=== PATIENT | male | born 1940 | race Caucasian/White ===

== ENCOUNTER 2016-08-15 19:22 | Emergency (ER) | payer BC ==
[~2016-08-15] VITALS: Ht 167.6 cm; Wt 65.0 kg
[~2016-08-15 19:22] MED LIST: Acetaminophen PO; FLORANEX PO; LORA1TAB PO; OMEP10CA4 PO; Vancomycin Hcl PO
[2016-08-15 19:46] VITALS: Ht 167.6 cm; Wt 65.0 kg
[2016-08-16] MEDS ORDERED: SOD CHLORIDE 0.9% 1,000 ML IV STA (01:44)
[2016-08-16 02:36] LABS: POTASSIUM 3.4 mmol/L (3.5-5.1)
[2016-08-16 02:39] LABS: ALBUMIN/GLOBULIN RATIO 1.37; BASOPHILS % 0.3 % (0.0-2.0); BILIRUBIN,INDIRECT 1.4 mg/dl (0-1.1); BILIRUBIN,TOTAL 1.4 mg/dl (0.2-1.3); CREATININE 0.79 mg/dl (0.61-1.24); EOSINOPHILS % 0.6 % (0.0-7.0); HEMATOCRIT 43.2 % (42.0-52.0); HEMOGLOBIN 14.7 g/dl (14.0-18.0); LYMPHOCYTES # 1.5 10^3/ul (0.8-2.9); LYMPHOCYTES % 21.3 % (15.0-51.0); MEAN CORPUSCULAR HGB CONC 34.1 g/dl (32.0-37.0); MEAN CORPUSCULAR VOLUME 90.8 fl (82.0-101.0); MEAN PLATELET VOLUME 7.4 fl (7.4-10.4); MONOCYTE # 0.5 10^3/ul (0.3-0.9); MONOCYTES % 6.7 % (0.0-11.0); NEUTROPHIL # 5.1 10^3/ul (1.6-7.5); NEUTROPHILS % 71.1 % (39.0-77.0); PLATELET COUNT 138 10^3/UL (140-440); RED BLOOD COUNT 4.75 10^6/ul (4.70-6.10); RED CELL DISTRIBUTION WIDTH 14.1 % (11.5-14.5); TOTAL PROTEIN 6.9 g/dl (6.1-8.1); UNCORRECTED WBC 7.1 10^3/ul (4.8-10.8); WHITE BLOOD COUNT 7.1 10^3/ul (4.8-10.8)
[2016-08-16 02:40] LABS: CALCIUM 8.9 mg/dl (8.4-10.2)
[2016-08-16 02:44] LABS: CONDITION 1
--- NOTE | 2016-08-16 02:54 | RADRPT ---
PROCEDURE: CT Abdomen and Pelvis without contrast. CLINICAL INDICATION: No bowel movement times 4 days TECHNIQUE: CT scan of the abdomen and pelvis without contrast was performed on a multidetector hig h-resolution CT scanner. The patient was scanned without intravenous contrast. No oral contrast was administered. Coronal and sagittal reformatted images were obtained from the axial source images. Im ages were reviewed on a high-resolution PACS workstation. The total exam CTDI equals 5.73 mGy and t he total exam DLP equals 312.16 mGy-cm. One or more of the following dose reduction techniques were used: - Automated exposure control. - Adjustment of the mA and/or kV according to patient size. - Use of iterative reconstruction technique. COMPARISON: 03/15/2015 FINDINGS: Lungs: Mild dependent atelectasis is seen in the posterior lower lungs. Linear atelectasis/fibrosis is seen at the lung bases. Chronic appearing fibrocalcific changes are again apparent in the right lower lung lobe which not appear to be significantly changed compared to the previous study. Oliva ry artery calcification is seen. Liver: There are rounded fluid density structures in the liver likely cysts again seen the largest 2 .8 cm in the anterior segment of the right lobe. Gallbladder: Cholelithiasis again seen. Spleen: No abnormality seen. Stomach: The stomach is not fully distended. No gross abnormality seen. Pancreas: No abnormality seen. Adrenals: No abnormality seen. Kidneys: There is a 3 mm nonobstructing calculus in the mid right kidney appearing since the previo us study. There is a 2 mm nonobstructing calcification in the mid left kidney appearing since the p revious study. There is a rounded fluid density structure arising from the mid left kidney measurin g 6.5 cm likely a cyst again seen. Abdominal aorta: No aneurysm seen. Atherosclerotic calcification is seen. Calcification in splenic , bilateral renal and iliac arteries. Lymph nodes: Appearing since the previous study there is lower left periaortic retroperitoneal/uppe r left iliac adenopathy with conglomerate ulysses mass measuring approximately 4.3 x 2.7 cm suspiciou s for malignancy/metastasis with smaller additional ulysses metastases seen in the left iliac and bila teral perirectal regions bilaterally the largest apparent oval mass on the right measuring 5.1 x 3.1 cm and the largest on the left 4 x 2.8 cm. Small bowel: No dilated small bowel loops are seen. Colon: No definite abnormality seen. Appendix: Not seen. Bladder: No abnormality seen Pelvic organs: Mild enlargement of prostate with impression on posterior inferior bladder appearing since previous study. Apparent seminal vesicles appear larger than on previous study. Ascites: None seen. Osseous structures: Lumbar spondylosis. Degenerative changes at sacroiliac joints and hips. IMPRESSION: Study limited without intravenous or oral contrast. Appearing since the previous study there is low er left periaortic retroperitoneal/upper left iliac adenopathy with conglomerate ulysses mass measurin g approximately 4.3 x 2.7 cm suspicious for malignancy/metastasis with smaller additional ulysses met astases seen in the left iliac and bilateral perirectal regions bilaterally the largest apparent ova l mass on the right measuring 5.1 x 3.1 cm and the largest on the left 4 x 2.8 cm. Mild enlargement of prostate with impression on posterior inferior bladder appearing since previous study. Apparent seminal vesicles appear larger than on previous study. Metastatic prostate carcinoma is a considerat ion. Cholelithiasis. A call report was made to <<Referring Physicians Name>> on <<DATETIME>>. RPTAT: HJES .Srinath Davenport MD, MD Date Time Electronically viewed and signed by .Srinath Davenport MD, MD on 08/16/2016 02:54 .S/
[2016-08-16 03:32] LABS: ADD UMIC YES; URINE BILIRUBIN (Dip) NEGATIVE (NEGATIVE); URINE BLOOD (Dip) 3+ (NEGATIVE); URINE GLUCOSE (Dip) NEGATIVE (NEGATIVE); URINE KETONES (Dip) 15 (NEGATIVE); URINE LEUKOCYTE ESTERASE (Dip) TRACE (NEGATIVE); URINE NITRITE (Dip) NEGATIVE (NEGATIVE); URINE TOTAL PROTEIN (Dip) 2+ (NEGATIVE); URINE UROBILINOGEN (Dip) 0.2 E.U./dL (0.1-1.0)
[2016-08-16 03:48] LABS: URINE COLOR RED (YELLOW)
[2016-08-16 03:57] LABS: URINE RBCS >200 /HPF (0)
[2016-08-16 03:58] LABS: BACTERIA,URINE FEW; SQUAMOUS EPITHELIAL CELL,UR FEW
[2016-08-16] MEDS ORDERED: DOCU-144 PO (05:09)
[2016-08-16] MEDS ORDERED: MAGN296S40 PO (05:09)
[2016-08-16] MEDS ORDERED: POLY17PO6 PO (05:09)
[2016-08-16] MEDS ORDERED: LEVO750T25 PO (05:38)
--- NOTE | 2016-08-16 05:47 | ERD ---
ER Documentation Chief Complaint Date/Time DATE: 08/16/16 TIME: 05:40 Chief Complaint no bowel movement for 5 days, blood clots urine, hx- prostate ca, brain ca HPI This is a 75-year-old male with history of prostate cancer comes emergency room for 5 days of constipation. He takes tramadol at home for pain which controls his pain well. Denies any increasing abdominal pain. Also states that he has had some blood clots in his urine for the past couple of days. States he has excellent PCP and urology follow-up and is undergoing treatment for his prostate cancer. Denies any lightheadedness, dizziness, chest pain, shortness of breath, fevers or chills. Denies dysuria. ROS All systems reviewed and are negative except as per history of present illness. Medications Home Meds Active Scripts Levofloxacin* (Levaquin*) 750 Mg Tablet, 750 MG PO DAILY for 5 Days, TAB Prov:MARLYCÉSAR 08/16/16 Docusate Sodium* (Colace*) 100 Mg Capsule, 100 MG PO TID, #30 CAP Prov:MARLYCÉSAR 08/16/16 Magnesium Citrate* (Magnesium Citrate*) 296 Ml Solution, 296 ML PO ONCE, #1 BOTTLE Prov:CÉSAR LUKE 08/16/16 Polyethylene Glycol* (Miralax*) 17 Gm Powd.pack, 17 GM PO DAILY, #7 Prov:CÉSAR LUKE 08/16/16 [Vancomycin Hcl] 50 MG/ML SOLN No Conflict Check, 250 MG PO Q6 for 18 Days, POSYG Prov:KEKE ARDON 07/11/15 Lactobacillus Acidoph/Bulgaricus* (Floranex*) 1 Tab Chew, 1 TAB PO BID for 30 Days, TAB Prov:KEKE ARDON 07/11/15 [Acetaminophen] 325 MG TAB No Conflict Check, 650 MG PO Q4H Y for pain/fever for 30 Days, TAB Prov:KEKE ARDON 07/11/15 Reported Medications Omeprazole* (Omeprazole*) 10 Mg Capsule.dr, 10 MG PO DAILY, #30 CAP 07/08/15 Lorazepam* (Lorazepam*) 1 Mg Tablet, 1 MG PO Q8 Y for ANXIETY, TAB 03/14/15 Allergies Allergies: Coded Allergies: hydrocodone (Unverified Allergy, Severe, 07/08/15) palpatations No Known Allergies (Verified Allergy, Mild, 07/07/15) PMhx/Soc History of Surgery: No Anesthesia Reaction: No Hx Neurological Disorder: No Hx Respiratory Disorders: No Hx Cardiac Disorders: No Hx Psychiatric Problems: No Hx Miscellaneous Medical Probl: Yes (altered mental status, metabolic encephalopathy, prostate CA, brain CA) Hx Alcohol Use: No Hx Substance Use: No Hx Tobacco Use: No Smoking Status: Never smoker Physical Exam Vitals Vital Signs Date Time Temp Pulse Resp B/P Pulse Ox O2 Delivery O2 Flow Rate FiO2 08/16/16 03:00 56 10 140/69 99 Room Air 08/16/16 02:00 61 16 133/72 99 Room Air 08/15/16 19:46 98.9 75 20 153/68 97 Physical Exam Const: [] Head: Atraumatic Eyes: Normal Conjunctiva ENT: Normal External Ears, Nose and Mouth. Neck: Full range of motion..~ No meningismus. Resp: Clear to auscultation bilaterally Cardio: Regular rate and rhythm, no murmurs Abd: Soft, non tender, non distended. Normal bowel sounds Skin: No petechiae or rashes Back: No midline or flank tenderness Ext: No cyanosis, or edema Neur: Awake and alert Psych: Normal Mood and Affect Result Diagram: 08/16/1615708/16/168 Results 24 hrs Laboratory Tests Test 08/16/16 01:58 08/16/16 03:02 Alanine Aminotransferase (ALT/SGPT) 16IU/L Albumin 4.0g/dl Albumin/Globulin Ratio 1.37 Alkaline Phosphatase 115IU/L Anion Gap 15 Aspartate Amino Transf (AST/SGOT) 30IU/L Basophils # 0.010^3/ul Basophils % 0.3% Blood Morphology Comment Blood Urea Nitrogen 15mg/dl Calcium Level 8.9mg/dl Carbon Dioxide Level 28mmol/L Chloride Level 92mmol/L Creatinine 0.79mg/dl Direct Bilirubin 0.00mg/dl Eosinophils # 0.010^3/ul Eosinophils % 0.6% Globulin 2.90g/dl Glucose Level 91mg/dl Hematocrit 43.2% Hemoglobin 14.7g/dl Indirect Bilirubin 1.4mg/dl Lymphocytes # 1.510^3/ul Lymphocytes % 21.3% Mean Corpuscular Hemoglobin 31.0pg Mean Corpuscular Hemoglobin Concent 34.1g/dl Mean Corpuscular Volume 90.8fl Mean Platelet Volume 7.4fl Monocytes # 0.510^3/ul Monocytes % 6.7% Neutrophils # 5.110^3/ul Neutrophils % 71.1% Nucleated Red Blood Cells # 0.010^3/ul Nucleated Red Blood Cells % 0.0/100WBC Platelet Count 97955^3/UL Potassium Level 3.4mmol/L Red Blood Count 4.7510^6/ul Red Cell Distribution Width 14.1% Sodium Level 132mmol/L Total Bilirubin 1.4mg/dl Total Protein 6.9g/dl White Blood Count 7.110^3/ul Urine Bacteria FEW Urine Bilirubin NEGATIVE Urine Clarity BLOODY Urine Color RED Urine Glucose NEGATIVE% Urine Hemoglobin 3+ Urine Ketones 15 Urine Leukocyte Esterase TRACE Urine Microscopic RBC >200/HPF Urine Microscopic WBC 0-2/HPF Urine Nitrite NEGATIVE Urine Specific [place] 1.015 Urine Squamous Epithelial Cells FEW Urine Total Protein 2+ Urine Urobilinogen 0.2 E.U./dL Urine pH 8.0 Current Medications Medications (Trade) Dose Ordered Sig/Beata Route PRN Reason Start Time Stop Time Status Last Admin Dose Admin Sodium Chloride (NS) 1,000 ml @ 1,000 mls/hr Q1H STAT IV 08/16/16 01:44 08/16/16 02:43 DC 08/16/16 01:59 Procedures/MDM Constipation and possible cystitis and patient with metastatic pancreatic cancer. No evidence of obstruction. Patient is able to take p.o. well and can hydrate himself at home. Has not tried laxatives yet for the constipation. Possible cystitis as this is the most common cause of hematuria. She with no significant fever chills or evidence of even early sepsis. Mild hyponatremia with history of chronic hyponatremia. Patient himself has excellent follow-up and has his own urologist. Going to discharge him with Levaquin for the possible cystitis. See discharge with primary care follow-up in the next 2 days as well as instructions to see his urologist within the next week for cystoscopy. I printed all of his laboratories and imaging so that he can take to his urologist and his primary care doctor. Giving him magnesium citrate, MiraLAX, Colace for bowel regimen instructed to return to the hospital if after the next few days these did not resolve his constipation. CT abdomen pelvis interpretation: Metastatic prostate cancer, constipation, no evidence of obstruction, no free air, gallstones without evidence of acute cholecystitis, no fractures Departure Diagnosis: Primary Impression: Constipation Additional Impressions: Hematuria Cystitis Thrombocytopenia Condition: Stable Patient Instructions: Hematuria Additional Instructions: Llame al doctor MAANA y yun zari LASHONDA PARA DENTRO DE 1-2 SOUZA. Tambien consigue zari lashonda con patiño UROLOGO entre zari semana. Dgale a la secretaria que nosotros le instruimos hacer esta lashonda.Avise o llame si patiño condicin se empeora antes de la lashonda. Regresa aqui si peor o no mejor. CÉSAR LUKE DO Aug 16, 2016 05:47
[2016-08-16 05:51] VITALS: BP 134/97; PULSE 63; RESP 20
== END 2016-08-16 05:51 | disposition home or self-care (01) ==
LOC: E/R 19:22
DX: K59.00 Constipation, unspecified (principal); R40.2252 Coma scale, best verbal response, oriented, at arrival to emergency department; N30.91 Cystitis, unspecified with hematuria; D69.6 Thrombocytopenia, unspecified; R40.2362 Coma scale, best motor response, obeys commands, at arrival to emergency department; R40.2142 Coma scale, eyes open, spontaneous, at arrival to emergency department; Z85.46 Personal history of malignant neoplasm of prostate; Z85.841 Personal history of malignant neoplasm of brain
CPT/HCPCS: 36415; 74176; 80053; 81001; 85025; 99285; J7030; 81003

== ENCOUNTER 2016-08-31 11:34 | Observation (INO) | payer BC ==
[2016-08-31] VITALS (7 sets, daily range): BP systolic 92–142; BP diastolic 53–64; PULSE 67; RESP 14–20; TEMP 99.5; Ht 182.9 cm; Wt 63.6 kg
[~2016-08-31] VITALS: Ht 182.9 cm; Wt 63.6 kg
[~2016-08-31 11:34] MED LIST changes: +DOCU-144 PO; +LEVO750T25 PO; +MAGN296S40 PO; +POLY17PO6 PO
[2016-08-31] MEDS ORDERED: SOD CHLORIDE 0.9% 500 ML IV STA ×2 (12:14→13:38)
[2016-08-31 12:42] LABS: ADD SCAN DIFF NO
[2016-08-31] MEDS ORDERED: ALPR0.5T6 PO (12:49)
[2016-08-31] MEDS ORDERED: PANT40TA3 PO (12:49)
[2016-08-31] MEDS ORDERED: LEVO500T10 PO (12:50)
[2016-08-31] MEDS ORDERED: DEXA4TAB PO (12:50)
[2016-08-31 12:52] LABS: POTASSIUM 3.4 mmol/L (3.5-5.1)
[2016-08-31] MEDS ORDERED: MORP10SO4 PO (12:52)
[2016-08-31 12:55] LABS: CREATININE 0.85 mg/dl (0.61-1.24)
[2016-08-31 12:58] LABS: ABNORMAL IP MESSAGE 1; BASOPHILS % 0.1 % (0.0-2.0); HEMATOCRIT 37.1 % (42.0-52.0); HEMOGLOBIN 12.5 g/dl (14.0-18.0); LYMPHOCYTES # 0.5 10^3/ul (0.8-2.9); LYMPHOCYTES % 6.9 % (15.0-51.0); MEAN CORPUSCULAR HEMOGLOBIN 30.3 pg (29.0-33.0); MEAN CORPUSCULAR HGB CONC 33.7 g/dl (32.0-37.0); MEAN PLATELET VOLUME 8.8 fl (7.4-10.4); MONOCYTE # 0.6 10^3/ul (0.3-0.9); MONOCYTES % 8.2 % (0.0-11.0); NEUTROPHIL # 5.5 10^3/ul (1.6-7.5); NEUTROPHILS % 82.7 % (39.0-77.0); PLATELET COUNT 252 10^3/UL (140-415); RED BLOOD COUNT 4.12 10^6/ul (4.70-6.10); RED CELL DISTRIBUTION WIDTH 13.2 % (11.5-14.5); WHITE BLOOD COUNT 6.7 10^3/ul (4.8-10.8)
--- NOTE | 2016-08-31 13:15 | RADRPT ---
PROCEDURE: XR Chest. CLINICAL INDICATION: Shortness of breath /cough/chest pain TECHNIQUE: Chest AP portable COMPARISON: 07/07/2015 FINDINGS: The mediastinal structures are unremarkable. There is calcification of the thoracic aorta (consiste nt with atherosclerosis). The heart is normal in size and configuration. The pulmonary vascularity is normal. The lung aguilera are unremarkable. No consolidation is identified. The pleural spaces are unremarkable. There is a dextroscoliosis of the thoracic spine. There are senescent changes of the axial skeleton. IMPRESSION: Calcification of the thoracic aorta (consistent with atherosclerosis). No evidence for active cardiopulmonary disease. RPTAT: HGDB .Frankie Storey MD, MD Date Time Electronically viewed and signed by .Frankie Storey MD, on 08/31/2016 13:14 .B/
[2016-08-31 14:05] LABS: ADD UMIC YES; URINE BILIRUBIN (Dip) NEGATIVE (NEGATIVE); URINE BLOOD (Dip) 3+ (NEGATIVE); URINE COLOR LT. YELLOW (YELLOW); URINE GLUCOSE (Dip) NEGATIVE (NEGATIVE); URINE KETONES (Dip) NEGATIVE (NEGATIVE); URINE LEUKOCYTE ESTERASE (Dip) NEGATIVE (NEGATIVE); URINE NITRITE (Dip) NEGATIVE (NEGATIVE); URINE TOTAL PROTEIN (Dip) TRACE (NEGATIVE); URINE UROBILINOGEN (Dip) 0.2 E.U./dL (0.1-1.0)
[2016-08-31] MEDS ORDERED: SOD CHLORIDE 0.9% 1,000 ML IV SCH ×2 (14:08→16:25)
--- NOTE | 2016-08-31 14:13 | ERA ---
ER Documentation Chief Complaint Date/Time DATE: 08/31/16 TIME: 14:09 Chief Complaint COUGH & CWP STARTING ON SATURDAY HPI History obtained from patient's daughter who is at bedside as patient is unable to give a detailed history secondary to his clinical condition. This is a 75- year-old male who presents to the emergency room for evaluation of generalized weakness, cough and chest discomfort which started on Saturday, August 27. The patient does have a history of prostate cancer with metastasis to the brain. He is not on chemo or radiation at this time. According to the patient's daughter patient has been feeling more weak than normal, he has been coughing. She was concerned and wanted the patient to come to the emergency room to rule out pneumonia. According to the daughter the patient has not had any fevers at home but has had chills ROS All systems reviewed and are negative except as per history of present illness. Medications Home Meds Active Scripts Docusate Sodium* (Colace*) 100 Mg Capsule, 100 MG PO TID, #30 CAP Prov:CÉSAR LUKE DO 08/16/16 Reported Medications Morphine Sulfate* (Morphine* Liq) 10 Mg/5 Ml Solution, 10-20 MG PO TID Y for PAIN, ML 08/31/16 Levofloxacin* (Levofloxacin*) 500 Mg Tablet, 500 MG PO DAILY, TAB FOR 7 DAYS STARTED 08-30-16 08/31/16 Dexamethasone* (Dexamethasone*) 4 Mg Tablet, 4 MG PO TID, TAB 08/31/16 Pantoprazole* (Protonix*) 40 Mg Tablet.dr, 40 MG PO DAILY, TAB 08/31/16 Alprazolam* (Alprazolam*) 0.5 Mg Tablet, 0.5 MG PO Q8H Y for ANXIETY, TAB 08/31/16 Discontinued Reported Medications Omeprazole* (Omeprazole*) 10 Mg Capsule.dr, 10 MG PO DAILY, #30 CAP 07/08/15 Lorazepam* (Lorazepam*) 1 Mg Tablet, 1 MG PO Q8 Y for ANXIETY, TAB 03/14/15 Discontinued Scripts Levofloxacin* (Levaquin*) 750 Mg Tablet, 750 MG PO DAILY for 5 Days, TAB Prov:CÉSAR LUKE DO 08/16/16 Magnesium Citrate* (Magnesium Citrate*) 296 Ml Solution, 296 ML PO ONCE, #1 BOTTLE Prov:CÉSAR LUKE DO 08/16/16 Polyethylene Glycol* (Miralax*) 17 Gm Powd.pack, 17 GM PO DAILY, #7 Prov:CÉSAR LUKE DO 08/16/16 [Vancomycin Hcl] 50 MG/ML SOLN No Conflict Check, 250 MG PO Q6 for 18 Days, POSYG Prov:KEKE ARDON 07/11/15 Lactobacillus Acidoph/Bulgaricus* (Floranex*) 1 Tab Chew, 1 TAB PO BID for 30 Days, TAB Prov:KEKE ARDON 07/11/15 [Acetaminophen] 325 MG TAB No Conflict Check, 650 MG PO Q4H Y for pain/fever for 30 Days, TAB Prov:KEKE ARDON 07/11/15 Allergies Allergies: Coded Allergies: hydrocodone (Unverified Allergy, Severe, 08/31/16) palpatations No Known Allergies (Verified Allergy, Mild, 08/31/16) PMhx/Soc History of Surgery: No Anesthesia Reaction: No Hx Neurological Disorder: No Hx Respiratory Disorders: No Hx Cardiac Disorders: No Hx Psychiatric Problems: No Hx Miscellaneous Medical Probl: Yes (altered mental status, metabolic encephalopathy, prostate CA, brain CA) Hx Alcohol Use: No Hx Substance Use: No Hx Tobacco Use: No Smoking Status: Never smoker Physical Exam Vitals Vital Signs Date Time Temp Pulse Resp B/P Pulse Ox O2 Delivery O2 Flow Rate FiO2 08/31/16 13:09 77 20 100 Nasal Cannula 2.0 08/31/16 12:21 Nasal Cannula 2 08/31/16 11:48 99.5 97 24 110/56 95 Physical Exam INITIAL VITAL SIGNS: Reviewed by me GENERAL: The patient is frail-appearing elderly gentleman HEENT: Dry mucous membranes, pupils equal, round, and reactive to light. EOMI. There is no scleral icterus. NECK: C-spine is soft and supple, there is no meningismus. There is no cervical lymphadenopathy. LUNGS: Clear to auscultation bilaterally. There are no rales, wheezes or rhonchi. HEART: Regular rate and rhythm, no murmurs, clicks, rubs or gallops. ABDOMEN: Soft, non-tender, non-distended. There are bowel sounds in all four quadrants. No rebound or guarding. EXTREMITIES: There is no peripheral cyanosis or edema. No focal swelling or erythema. NEUROLOGICAL: The patient moves all four extremities with 5/5 strength. Cranial nerves II - XII are intact. Normal gait. Alert and oriented SKIN: There is no apparent rash or petechiae. Rectal exam: External hemorrhoids HEME/LYMPHATIC: There is no evidence of excessive bruising or lymphedema. PSYCHIATRIC: The patient does not appear anxious or depressed. Result Diagram: 08/31/16 1220 08/31/16 1220 Results 24 hrs Laboratory Tests Test 08/31/16 12:20 08/31/16 13:57 Anion Gap -3 Basophils # 0.010^3/ul Basophils % 0.1% Blood Urea Nitrogen 20mg/dl Calcium Level 9.0mg/dl Carbon Dioxide Level 27mmol/L Chloride Level 98mmol/L Creatinine 0.85mg/dl Eosinophils # 0.010^3/ul Eosinophils % 0.0% Glucose Level 134mg/dl Hematocrit 37.1% Hemoglobin 12.5g/dl Lactic Acid Level 2.3mmol/L Lymphocytes # 0.510^3/ul Lymphocytes % 6.9% Mean Corpuscular Hemoglobin 30.3pg Mean Corpuscular Hemoglobin Concent 33.7g/dl Mean Corpuscular Volume 90.0fl Mean Platelet Volume 8.8fl Monocytes # 0.610^3/ul Monocytes % 8.2% Neutrophils # 5.510^3/ul Neutrophils % 82.7% Nucleated Red Blood Cells # 0.010^3/ul Nucleated Red Blood Cells % 0.0/100WBC Platelet Count 46575^3/UL Potassium Level 3.4mmol/L Red Blood Count 4.1210^6/ul Red Cell Distribution Width 13.2% Sodium Level 119mmol/L White Blood Count 6.710^3/ul Urine Bacteria FEW Urine Bilirubin NEGATIVE Urine Clarity CLEAR Urine Color LT. YELLOW Urine Epithelial Cells RARE Urine Glucose NEGATIVE% Urine Hemoglobin 3+ Urine Ketones NEGATIVE Urine Leukocyte Esterase NEGATIVE Urine Microscopic RBC >50/HPF Urine Microscopic WBC 0-2/HPF Urine Nitrite NEGATIVE Urine Specific [place] 1.020 Urine Total Protein TRACE Urine Urobilinogen 0.2 E.U./dL Urine pH 6.5 Current Medications Medications (Trade) Dose Ordered Sig/Beata Route PRN Reason Start Time Stop Time Status Last Admin Dose Admin Sodium Chloride 500 ml @ 500 mls/hr Q1H STAT IV 08/31/16 12:14 08/31/16 13:13 DC 08/31/16 12:28 Sodium Chloride 500 ml @ 500 mls/hr Q1H STAT IV 08/31/16 13:38 08/31/16 14:37 08/31/16 14:04 Sodium Chloride (NS) 1,000 ml @ 80 mls/hr [id number] IV 08/31/16 14:08 09/01/16 02:37 Ondansetron HCl (Zofran Inj) 4 mg ER BRIDGE PRN IV NAUSEA AND/OR VOMITING 08/31/16 14:30 09/01/16 14:29 Acetaminophen (Tylenol Tab) 650 mg ER BRIDGE PRN PO MILD PAIN/FEVER 08/31/16 14:30 09/01/16 14:29 Procedures/MDM EKG: Rate/Rhythm: [Normal Sinus Rhythm] QRS, ST, T-waves: [No changes consistent w/ acute ischemia] Impression: [No evidence of ischemia or arrhythmia] Chest X-ray 1V Interpreted by me: Soft Tissue: No acute abnormalities Bones: No acute abnormalities Mediastinum/Cardiac Silhouette/Lungs: [No acute abnormalities] This 75-year-old male presents to the emergency room for evaluation of generalized weakness, and and chest discomfort with a cough. When I evaluated him the patient did appear to be frail, and he did have dry mucous membranes. Lab work was obtained including an EKG and a chest x-ray. Chest x-ray does not show any signs of acute infiltrate, EKG does not show any acute ischemia at this time. His lab work does show a sodium of 119. I have trended this patient 's sodium and his sodium levels have generally been above 130. This patient has had no seizure activity since being in the emergency room. He was given 1 L of IV normal saline, and was started on IV normal saline at 80 cc/h. Lactic acid is slightly elevated at 2.3. This patient will be placed in for admission at this time for hyponatremia, dehydration, and will be placed on the telemetry floor under the care of Dr. Braulio Tavares Diagnosis: Primary Impression: Hyponatremia Additional Impressions: Dehydration Normocytic anemia Hematuria Condition: Fair HANNAH HERMOSILLO DO Aug 31, 2016 14:13
[2016-08-31 14:16] LABS: URINE RBCS >50 /HPF (0)
[2016-08-31 14:17] LABS: BACTERIA,URINE FEW
[2016-08-31] MEDS ORDERED: ONDANSETRON 4 MG INJ IV PRN ×2 (14:30→16:30)
[2016-08-31] MEDS ORDERED: ACETAMINOPHEN 325 MG TAB PO PRN ×2 (14:30→16:30)
[2016-08-31] MEDS ORDERED: MAGNESIUM HYDROXIDE 30ML CUP PO PRN (16:30)
[2016-08-31] MEDS ORDERED: morphine LIQ (10 MG/5 ML) CUP PO PRN (16:30)
[2016-08-31] MEDS ORDERED: BISACODYL 10 MG SUPP PR PRN (16:30)
[2016-08-31] MEDS ORDERED: NACL 0.9% 3 ML SYG IV SCH (16:30)
[2016-08-31] MEDS ORDERED: ALPRAZOLAM 0.5 MG TAB PO PRN (16:30)
[2016-08-31] MEDS ORDERED: POTASSIUM CHLORIDE (SR) 20 MEQ TAB PO STA (16:46)
[2016-08-31] MEDS: LEVOFLOXACIN 500 MG TAB PO SCH (18:49)
[2016-08-31] MEDS: PANTOPRAZOLE (EC) 40 MG TAB PO SCH (18:49)
[2016-08-31] MEDS: POTASSIUM CHLORIDE 30 MEQ in SOD CHLORIDE 0.9% 1,000 ML IV SCH (18:50)
[2016-08-31] MEDS: DEXAMETHASONE 4 MG TAB PO SCH (21:00)
[2016-08-31] MEDS ORDERED: DEXAMETHASONE 4 MG TAB PO SCH (21:00)
[2016-08-31] MEDS: POLYETHYLENE GLYCOL 17 GM PACKET PO SCH (21:00)
[2016-08-31] MEDS: LEVETIRACETAM 250 MG TAB PO SCH (21:00)
--- NOTE | 2016-08-31 21:00 | HP ---
DATE OF ADMISSION: 08/31/2016 PRIMARY CARE PHYSICIAN: Leonidas Kraus MD PRIMARY ONCOLOGIST: Walker Fagan MD PRIMARY RADIATION ONCOLOGIST: Sola Mason MD CHIEF COMPLAINT ON ADMISSION: Generalized weakness and ongoing cough. HISTORY OF PRESENT ILLNESS: This is a 75-year-old male with history of metastatic small cell prosta te cancer; unfortunately, with progression of the disease and now mets throughout the pelvis and als o brain mets, previous history of C diff colitis, who was brought into the emergency department with reported ongoing cough productive of white phlegm over the past 5 days. The patient also reports g eneralized weakness. He reports ongoing chronic pain now, narcotic-dependent. He is on morphine an d ongoing constipation, chronic, due to morphine. The patient was started on Levaquin yesterday. T hui in the emergency department, he was noted to have a sodium level of 119, which was reported by the lab, at that time. He was started on IV fluids, admitted to a telemetry bed due to the sodium l evel. The patient, himself, reports generalized weakness, which has been chronic now. No seizures, no new changes. A few hours later the lab did call to report that the previous sodium reported was a lab error, and the patient's sodium is actually 134. The patient has been started on IV fluids a gain. His potassium came back at 3.4; therefore, he will be given a dose of potassium chloride an d adjusted his fluid with additional potassium. I had a discussion with his primary care physician. The patient was diagnosed with brain mets this past July, when he had a PET CT, with some vasog enic edema around the lesions. He was found to have 6 lesions. He was started on Decadron in prepa ration for palliative radiation therapy. His Decadron is down to 4 mg p.o. b.i.d., currently. Afte r discussion with the primary care physician, we will also start low-dose Keppra for seizure prevent ion. Patient denies any fevers, chills. He denies any new symptoms, at this point. He also has on going pelvic pain. He had some hematuria when he urinates and pain around his pelvic area and lower abdomen chronically. He also has frequent urination. Blood cultures have been drawn along with a urine culture. His lactate came back at 2.3; therefore, he has been given IV fluids and the lactate will be trended. The patient is very insistent on going home, but he is agreeable to stay overnigh t for IV hydration. Also, we will get a CAT scan of his chest in order to make sure that he does no t have now mets to the chest and continue his Levaquin. ALLERGIES: NO KNOWN ALLERGIES. PAST MEDICAL HISTORY 1. Metastatic small cell prostate cancer. Unfortunately, status post chemotherapy in March 2016 with further progression of the disease, with now brain mets. 2. Status post chemotherapy in March 2016 for metastatic prostate cancer. 3. History of C diff colitis. 4. Mild chronic hyponatremia. 5. Protein calorie deficiency and poor appetite. 6. Chronic pain, narcotic-dependent, secondary to metastatic prostate cancer. SOCIAL HISTORY: The patient lives in [place] with family. He is legally blind and he requires ass istance for all ADLs at this point. PAST SURGICAL HISTORY: None. OUTPATIENT MEDICATIONS 1. Levofloxacin 500 mg p.o. daily, started on 08/03/2016. 2. Alprazolam 0.5 mg p.o. q.8h. p.r.n. anxiety. 3. Morphine liquid 10 to 20 mg p.o. t.i.d. p.r.n. pain. 4. Colace 100 mg p.o. t.i.d. 5. Protonix 40 mg p.o. daily. 6. Dexamethasone 4 mg p.o. b.i.d. 7. MiraLax 17 g p.o. daily. 8. Magnesium citrate every 3 days if no bowel movement. PHYSICAL EXAMINATION VITAL SIGNS: Temperature is 98.8, heart rate of 86, respiratory rate of 14, blood pressure 92/53, p atient is saturating 99% on 2 L nasal cannula. GENERAL: He is alert. He is oriented x2 to 3 at least. He is having occasional difficulty with wo rd finding. He is in mild distress due to pain in his pelvic area. HEENT: Pupils are round and reactive to light. He does have macular degeneration and he is legally blind. NECK: No JVD; no thyromegaly noted. LUNGS: Clear to auscultation bilaterally. He does have a cough which is ongoing with white phlegm. HEART: Regular rate and rhythm. No murmur, rubs, or gallops. LUNGS: Clear to auscultation. ABDOMEN: Soft, nondistended. He does have tenderness to palpation in the suprapubic area and pelvi c area. Bowel sounds are present. EXTREMITIES: No edema, clubbing or cyanosis. LABORATORY DATA: A white blood cell count is 6.7, hemoglobin 12.5, hematocrit 37.1, platelet count of 252. Chemistry with a sodium of 134, potassium 3.4, chloride 98, bicarbonate 27, BUN 20, creatin ine 0.85, glucose of 134. Lactate came back at 2.3, calcium 9.0. Urinalysis today shows clear urin e. RADIOLOGICAL DATA: 1. A chest x-ray shows calcification of the thoracic aorta, consistent with atherosclerosis; no kyle dence of active cardiopulmonary disease. The patient had a CAT scan of the abdomen and pelvis in , approximately 2 weeks ago, that does show metastatic disease to the pelvis. This was conf irmed again already on PET CT prior. 2. CAT scan of the chest is pending. ASSESSMENT AND PLAN This is a 75-year-old male with: 1. Apparent hyponatremia, unfortunately was a lab error. Patient's sodium seems to be around his b aseline lately of mild low-sodium of 134. We will continue IV fluids at this point. His potassium was low, which will be repleted. Continue IV fluids. Repeat labs in the morning. 2. Metastatic small cell prostate carcinoma, with wide metastasis including the brain and the pelvi s. Patient has completed chemotherapy; at this point, they are contemplating radiation therapy, whi ch is likely palliative. He has been started on Decadron for his brain metastases. I will add Keppr a for seizure prophylaxis. 3. Mild dehydration. Continue IV fluids for now and encouraging p.o. intake. 4. Chronic pain, secondary to metastatic prostate cancer, narcotic-dependent, to be continued. 5. Chronic constipation. The patient does need a bowel regimen for him to maintain his bowel movem ents; therefore, will continue his Colace 100 mg p.o. 3 times a day and add MiraLax 17 g p.o. b.i.d. The patient also to receive milk of magnesia, as needed. 6. Mildly elevated lactate. We will continue IV fluid, recheck the lactate level. 7. Cough, that may be secondary to bronchitis. We will follow up on the CAT scan of the chest in o rder to make sure that the patient did not develop any further metastases to the chest at this point . I agree with Levaquin that was started as an outpatient already. 8. Prophylaxis. SCDs to lower extremity for deep venous thrombosis prophylaxis and Protonix for ga strointestinal prophylaxis. DISPOSITION: The patient has been admitted as an observation. I did change his level of care to a medical/surgical bed, given the corrected sodium level. Dictated By: KEKE DAHL/NTS Conf#: [id number] DID#: [id number]
[2016-08-31] MEDS: morphine 2 MG INJ IV PRN ×2 (21:01→23:24)
[2016-08-31] MEDS: DOCUSATE SODIUM 100 MG CAP PO SCH (21:01)
[2016-08-31] MEDS: LACTOBACILLUS CHEW TAB PO SCH (21:01)
[2016-08-31] MEDS: GUAIFENESIN/CODEINE 5ML CUP PO PRN (23:24)
[2016-09-01 04:26] VITALS: BP 158/74; RESP 18
[2016-09-01] MEDS: morphine 2 MG INJ IV PRN ×3 (05:10→21:46)
[2016-09-01] MEDS: GUAIFENESIN/CODEINE 5ML CUP PO PRN (05:10)
[2016-09-01] MEDS: POTASSIUM CHLORIDE 30 MEQ in SOD CHLORIDE 0.9% 1,000 ML IV SCH (05:14)
[2016-09-01] MEDS: PANTOPRAZOLE (EC) 40 MG TAB PO SCH (06:38)
[2016-09-01 06:53] LABS: ADD SCAN DIFF NO
[2016-09-01 06:56] LABS: BASOPHILS % 0.1 % (0.0-2.0); HEMATOCRIT 34.4 % (42.0-52.0); HEMOGLOBIN 11.6 g/dl (14.0-18.0); LYMPHOCYTES # 0.7 10^3/ul (0.8-2.9); LYMPHOCYTES % 8.4 % (15.0-51.0); MEAN CORPUSCULAR HEMOGLOBIN 30.5 pg (29.0-33.0); MEAN CORPUSCULAR HGB CONC 33.7 g/dl (32.0-37.0); MEAN CORPUSCULAR VOLUME 90.5 fl (82.0-101.0); MEAN PLATELET VOLUME 8.8 fl (7.4-10.4); MONOCYTE # 0.6 10^3/ul (0.3-0.9); MONOCYTES % 6.8 % (0.0-11.0); NEUTROPHIL # 7.1 10^3/ul (1.6-7.5); NEUTROPHILS % 83.1 % (39.0-77.0); PLATELET COUNT 231 10^3/UL (140-415); RED CELL DISTRIBUTION WIDTH 13.3 % (11.5-14.5); WHITE BLOOD COUNT 8.5 10^3/ul (4.8-10.8)
[2016-09-01 07:12] LABS: POTASSIUM 4.1 mmol/L (3.5-5.1)
[2016-09-01 07:14] LABS: ALBUMIN/GLOBULIN RATIO 1.2; BILIRUBIN,INDIRECT 0.5 mg/dl (0-1.1); BILIRUBIN,TOTAL 0.5 mg/dl (0.2-1.3); CREATININE 0.78 mg/dl (0.61-1.24); TOTAL PROTEIN 5.5 g/dl (6.1-8.1)
[2016-09-01 07:15] LABS: CALCIUM 8.8 mg/dl (8.4-10.2); MAGNESIUM 1.8 mg/dl (1.7-2.5)
[2016-09-01 07:47] VITALS: BP 114/58; RESP 18
[2016-09-01] MEDS: DOCUSATE SODIUM 100 MG CAP PO SCH ×3 (08:49→21:52)
[2016-09-01] MEDS: LACTOBACILLUS CHEW TAB PO SCH ×2 (08:49→21:52)
[2016-09-01] MEDS: LEVOFLOXACIN 500 MG TAB PO SCH (08:49)
[2016-09-01] MEDS: DEXAMETHASONE 4 MG TAB PO SCH ×2 (08:50→21:46)
[2016-09-01] MEDS: LEVETIRACETAM 250 MG TAB PO SCH ×2 (08:50→21:52)
[2016-09-01] MEDS: POLYETHYLENE GLYCOL 17 GM PACKET PO SCH ×2 (08:50→21:00)
--- NOTE | 2016-09-01 09:09 | PDOCDIS ---
Discharge Instructions CONDITION Patient Condition: Stable HOME CARE INSTRUCTIONS: Diet Instructions: Regular ACTIVITY: Activity Restrictions: Slowly Increase Activity FOLLOW UP/APPOINTMENTS Appointments Follow up with PCP within [address] Fagan within [address] Morgan Nieves as previously scheduled KEKE ARDON Sep 01, 2016 09:09
[2016-09-01] MEDS ORDERED: POLY17PO6 PO (09:11)
[2016-09-01] MEDS ORDERED: LEVE250T66 PO (09:11)
[2016-09-01] MEDS ORDERED: ACID1TAB14 PO (09:11)
[2016-09-01 11:30] VITALS: BP 117/57; RESP 18
[2016-09-01] MEDS ORDERED: VANCOMYCIN IV PER PHARMACY XX SCH (12:00)
--- NOTE | 2016-09-01 12:10 | PN ---
Date/Time of Note Date/Time of Note DATE: 09/01/16 TIME: 11:56 Assessment/Plan VTE Prophylaxis VTE Prophylaxis Intervention: SCD's Lines/Catheters [facility] Peripheral IV Urinary Cath still in place: No Assessment/Plan Assessment/Plan 75-year-old male with: 1. GPC blood cx, ? contaminant vs infection, patient immunosuppressed with metastatic CA and on steroids and ongoing cough Repeat blood cx now, WBC wnl and afebrile Vanco to start while awaiting blood cx results and repeat blood cx 2. Apparent severe hyponatremia with Na 119, fortunately was a lab error. Resolved Continue gentle IVF while inpatient. 3. 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 Patient has completed chemotherapy; at this point, they are contemplating radiation therapy, which is likely palliative. He has been started on Decadron for his brain metastases. Twyla added. 4. Mild dehydration. Resolved post IVF overnight Encouraging p.o. intake. 5. Chronic pain, secondary to metastatic prostate cancer, narcotic-dependent, Morphine to be continued. 6. Chronic constipation. Continue his Colace 100 mg p.o. 3 times a day and add MiraLAX 17 g p.o. b.i.d. Also milk of magnesia, as needed. 7. Mildly elevated lactate. Resolved. 8. Cough, that may be secondary to bronchitis. R/o mets, CT chest done and results pending this AM Continue Levaquin Prophylaxis. SCDs to lower extremity for deep venous thrombosis prophylaxis and Protonix for gastrointestinal prophylaxis. DISPOSITION: Repeat blood cx x2 pending and starting Vanco, level of care changed to medical/surgical level of care, will change to inpatient Subjective 24 Hr Interval Summary Free Text/Dictation Patient wants to go home but called just now regarding positive blood cx Remains stable and lactate wnl and also Na wnl Blood cx with GPC, repeat blood cx and vanco today Exam/Review of Systems Vital Signs Vitals Vital Signs Date Time Temp Pulse Resp B/P Pulse Ox O2 Delivery O2 Flow Rate FiO2 09/01/16 11:30 98.5 74 18 117/57 97 09/01/16 08:00 Nasal Cannula 2.0 Exam Constitutional: alert, frail, oriented (x2) Respiratory: clear to auscultation, normal air movement Cardiovascular: nl pulses, regular rate and rhythm Gastrointestinal: non-tender, soft Musculoskeletal: nl extremities to inspection Extremities: normal pulses, other (no edema, clubbing or cyanosis ) Neurological: LAMINATOR HAND II-XII intact (legally blind ), confused (especially at night ), lethargic, nl speech Results Result Diagram: 09/01/16 0615 09/01/16 0615 Results 24 hrs Laboratory Tests Test 08/31/16 12:20 08/31/16 13:57 08/31/16 18:50 08/31/16 20:40 Anion Gap 12 Basophils # 0.0 Basophils % 0.1 Blood Urea Nitrogen 20 Calcium Level 9.0 Carbon Dioxide Level 27 Chloride Level 98 Creatinine 0.85 Eosinophils # 0.0 Eosinophils % 0.0 Glucose Level 134 Hematocrit 37.1 L Hemoglobin 12.5 L Lactic Acid Level 2.3 H 0.9 0.9 Lymphocytes # 0.5 L Lymphocytes % 6.9 L Mean Corpuscular Hemoglobin 30.3 Mean Corpuscular Hemoglobin Concent 33.7 Mean Corpuscular Volume 90.0 Mean Platelet Volume 8.8 Monocytes # 0.6 Monocytes % 8.2 Neutrophils # 5.5 Neutrophils % 82.7 H Nucleated Red Blood Cells # 0.0 Nucleated Red Blood Cells % 0.0 Platelet Count 252 Potassium Level 3.4 L Red Blood Count 4.12 L Red Cell Distribution Width 13.2 Sodium Level 134 L White Blood Count 6.7 Urine Bacteria FEW Urine Bilirubin NEGATIVE Urine Clarity CLEAR Urine Color LT. YELLOW Urine Epithelial Cells RARE Urine Glucose NEGATIVE Urine Hemoglobin 3+ H Urine Ketones NEGATIVE Urine Leukocyte Esterase NEGATIVE Urine Microscopic RBC >50 Urine Microscopic WBC 0-2 Urine Nitrite NEGATIVE Urine Specific [place] 1.020 Urine Total Protein TRACE Urine Urobilinogen 0.2 E.U./dL Urine pH 6.5 Test 09/01/16 06:15 Alanine Aminotransferase (ALT/SGPT) 30 Albumin 3.0 L Albumin/Globulin Ratio 1.20 Alkaline Phosphatase 97 Anion Gap 12 Aspartate Amino Transf (AST/SGOT) 23 Basophils # 0.0 Basophils % 0.1 Blood Urea Nitrogen 15 Calcium Level 8.8 Carbon Dioxide Level 26 Chloride Level 102 Creatinine 0.78 Direct Bilirubin 0.00 Eosinophils # 0.0 Eosinophils % 0.0 Globulin 2.50 Glucose Level 107 Hematocrit 34.4 L Hemoglobin 11.6 L Indirect Bilirubin 0.5 Lymphocytes # 0.7 L Lymphocytes % 8.4 L Magnesium Level 1.8 Mean Corpuscular Hemoglobin 30.5 Mean Corpuscular Hemoglobin Concent 33.7 Mean Corpuscular Volume 90.5 Mean Platelet Volume 8.8 Monocytes # 0.6 Monocytes % 6.8 Neutrophils # 7.1 Neutrophils % 83.1 H Nucleated Red Blood Cells # 0.0 Nucleated Red Blood Cells % 0.0 Platelet Count 231 Potassium Level 4.1 Red Blood Count 3.80 L Red Cell Distribution Width 13.3 Sodium Level 136 Total Bilirubin 0.5 Total Protein 5.5 L White Blood Count 8.5 # Medications Medications Current Medications Ondansetron HCl (Zofran Inj) 4 mg Q6H PRN IV NAUSEA AND/OR VOMITING; Start 08/31 at 16:30 Acetaminophen (Tylenol Tab) 650 mg Q6H PRN PO PAIN LEVEL 1-3 OR FEVER; Start at 16:30 Morphine Sulfate (morphine) 2 mg Q4H PRN IV PAIN LEVEL 7-10 Last administered on 09/01/16 05:10; Admin Dose 2 MG; Start 08/31/16 at 16:30 Magnesium Hydroxide (Milk Of Mag) 30 ml DAILY PRN PO CONSTIPATION; Start at 16:30 Bisacodyl (Dulcolax Supp) 10 mg DAILY PRN [place] CONSTIPATION; Start 08/31/16 at 16: 30 Alprazolam (Xanax) 0.5 mg Q8H PRN PO ANXIETY Last administered on 08/31/16 21: 05; Admin Dose 0.5 MG; Start 08/31/16 at 16:30 Docusate Sodium (Colace) 100 mg TID PO Last administered on 09/01/16 08:49; Admin Dose 100 MG; Start 08/31/16 at 21:00 Morphine Sulfate (morphine) 10 mg Q8 PRN PO PAIN LEVEL 1-5; Start 08/31/16 at 16 :30 Pantoprazole (Protonix Tab) 40 mg DAILY@06 PO Last administered on 09/01/16 06: 38; Admin Dose 40 MG; Start 08/31/16 at 16:30 Morphine Sulfate (morphine) 20 mg Q8 PRN PO PAIN LEVEL 7-10; Start 08/31/16 at 16:30 Dexamethasone (Decadron) 4 mg BID PO Last administered on 09/01/16 08:50; Admin Dose 4 MG; Start 08/31/16 at 21:00 Levofloxacin (Levaquin) 500 mg DAILY PO Last administered on 09/01/16 08:49; Admin Dose 500 MG; Start 08/31/16 at 17:00 Guaifenesin/ Codeine Phosphate (Robitussin Ac Liquid Cup) 10 ml Q4H PRN PO COUGH Last administered on 09/01/16 05:10; Admin Dose 10 ML; Start 08/31/16 at 17 :00 Polyethylene Glycol (Miralax) 17 gm BID PO Last administered on 09/01/16 08:50 ; Admin Dose 17 GM; Start 08/31/16 at 21:00 Lactobacillus Acidoph/Bulgaricus (Floranex) 1 tab BID PO Last administered on 08:49; Admin Dose 1 TAB; Start 08/31/16 at 21:00 Levetiracetam (Keppra) 250 mg BID PO Last administered on 09/01/16 08:50; Admin Dose 250 MG; Start 08/31/16 at 21:00 KEKE ARDON Sep 01, 2016 12:08
[2016-09-01] MEDS: NS + KCL 20 MEQ 1,000 ML IV SCH (12:39)
[2016-09-01] MEDS: VANCOMYCIN 1.5 GM in SOD CHLORIDE 0.9% 250 ML IVPB SCH (14:16)
[2016-09-01 15:15] VITALS: BP 129/61; RESP 18
--- NOTE | 2016-09-01 16:16 | RADRPT ---
PROCEDURE: CT chest without contrast CLINICAL INDICATION: Abdominal masses/adenopathy. Evaluate for intrathoracic metastases TECHNIQUE: CT scan of the chest with contrast was performed without intravenous contrast. Coronal and sagittal images were reformatted. The CTDIvol = 10.18 mGy and DLP = 392.88 mGycm. COMPARISON: Chest x-ray 08/31/2016 FINDINGS: Lungs, airway and pleura: Some secretions are seen within the right main and right lower lobe bronc hi with mild peribronchial thickening in the lower lobes unable to exclude bronchitis. The trachea is midline and with trace secretions but normal in caliber. The lungs are clear of infiltrates, mas ses or nodules, dependent to the bilateral lower lobe subsegmental atelectasis is moderate. There i s no evidence of emphysema. The pleural spaces are clear, without effusions. Mediastinum, raffi and cardiovascular: The heart is normal in size with moderate atherosclerotic new[place] cification in the coronary arteries for the patient's age. There is no evidence for pericardial eff usion. The thoracic aorta is normal in caliber and with mild atherosclerotic calcification. There is no evidence for hilar mass and no mediastinal adenopathy is present. The esophagus is normal in caliber. Osseous structures and musculoskeletal findings: Demineralization is noted and there is moderate mu ltilevel thoracic spondylosis. No fracture, lytic or blastic lesion is present. Benign appearing o f bilateral gynecomastia is noted greater on the right. The axillary regions are unremarkable. Visualized upper abdomen: Hypodense lesion within the right hepatic lobe most likely reflects a cys t with septations. Calcified gallstone is noted without surrounding inflammation. Large cyst of th e upper pole left kidney is noted with small nonobstructing right upper pole renal calculus. The ad renal glands are normal bilaterally. RPTAT:HJJR IMPRESSION: 1. No evidence of intrathoracic mass or adenopathy. 2. Bibasilar subsegmental atelectasis with some peribronchial thickening and secretions in the lowe r lobe bronchi raising concern for bronchitis. 3. Moderate coronary artery and aortic atherosclerotic calcification. 4. Demineralization and thoracic spondylosis. 5. Benign appearing gynecomastia. Bassam Hernandez, Physician Date Time Electronically viewed and signed by Bassam Ng, Physician on 09/01/2016 16:16 JR/
[2016-09-01 18:57] VITALS: BP 134/62; PULSE 69; RESP 18
[2016-09-01 20:00] VITALS: BP 142/66; RESP 18
[2016-09-02] MEDS: NS + KCL 20 MEQ 1,000 ML IV SCH (00:22)
[2016-09-02] MEDS ORDERED: ALPRAZOLAM 0.25 MG TAB PO PRN (00:30)
[2016-09-02 06:37] LABS: ADD SCAN DIFF NO
[2016-09-02 06:52] LABS: BASOPHILS % 0.2 % (0.0-2.0); HEMATOCRIT 33.9 % (42.0-52.0); HEMOGLOBIN 11.3 g/dl (14.0-18.0); LYMPHOCYTES # 0.6 10^3/ul (0.8-2.9); LYMPHOCYTES % 9.9 % (15.0-51.0); MEAN CORPUSCULAR HEMOGLOBIN 30.2 pg (29.0-33.0); MEAN CORPUSCULAR HGB CONC 33.3 g/dl (32.0-37.0); MEAN CORPUSCULAR VOLUME 90.6 fl (82.0-101.0); MEAN PLATELET VOLUME 9.1 fl (7.4-10.4); MONOCYTE # 0.5 10^3/ul (0.3-0.9); MONOCYTES % 8.1 % (0.0-11.0); NEUTROPHIL # 5.1 10^3/ul (1.6-7.5); NEUTROPHILS % 79.5 % (39.0-77.0); PLATELET COUNT 238 10^3/UL (140-415); RED BLOOD COUNT 3.74 10^6/ul (4.70-6.10); RED CELL DISTRIBUTION WIDTH 13.3 % (11.5-14.5); WHITE BLOOD COUNT 6.5 10^3/ul (4.8-10.8)
[2016-09-02 07:07] LABS: PHOSPHORUS 2.7 mg/dl (2.5-4.9)
[2016-09-02] MEDS ORDERED: morphine LIQ (10 MG/5 ML) CUP PO PRN (07:13)
[2016-09-02 07:48] LABS: POTASSIUM 4.6 mmol/L (3.5-5.1)
[2016-09-02 07:51] LABS: CALCIUM 8.8 mg/dl (8.4-10.2); CREATININE 0.67 mg/dl (0.61-1.24)
[2016-09-02 07:53] VITALS: BP 114/59; RESP 16
[2016-09-02] MEDS: POLYETHYLENE GLYCOL 17 GM PACKET PO SCH ×2 (09:48→20:46)
[2016-09-02] MEDS: LACTOBACILLUS CHEW TAB PO SCH ×2 (09:48→20:47)
[2016-09-02] MEDS: LEVETIRACETAM 250 MG TAB PO SCH ×2 (09:49→20:47)
[2016-09-02] MEDS: LEVOFLOXACIN 500 MG TAB PO SCH (09:49)
[2016-09-02] MEDS: DOCUSATE SODIUM 100 MG CAP PO SCH ×3 (09:49→20:46)
[2016-09-02] MEDS: DEXAMETHASONE 4 MG TAB PO SCH ×2 (09:49→20:46)
[2016-09-02] MEDS: PANTOPRAZOLE (EC) 40 MG TAB PO SCH (09:49)
[2016-09-02] MEDS: morphine 2 MG INJ IV PRN ×2 (11:21→15:37)
--- NOTE | 2016-09-02 12:41 | PN ---
Date/Time of Note Date/Time of Note DATE: 09/02/16 TIME: 12:22 Assessment/Plan VTE Prophylaxis VTE Prophylaxis Intervention: SCD's Lines/Catheters IV Catheter Type (from [facility]): Peripheral IV Urinary Cath still in place: No Assessment/Plan Assessment/Plan 75-year-old male with: 1. GPC blood cx (maria isabel aguirre) 1/2 bottles, likely contaminant, but final ersults will be available tomorrow when I spoke to the [employer] arbitrator hearing office. patient immunosuppressed with metastatic CA and on steroids and ongoing cough WBC wnl and afebrile Vanco to continue while awaiting blood cx results and repeat blood cx 2. Apparent severe hyponatremia with Na 119, fortunately was a lab error. Resolved Continue gentle IVF while inpatient. 3. 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 Patient has completed chemotherapy; at this point, they are contemplating radiation therapy, which is likely palliative. He has been started on Decadron for his brain metastases. Twyla added. Considering outpatient XRT to the brain. 4. Mild dehydration. Resolved post IVF overnight Encouraging p.o. intake. 5. Chronic pain, secondary to metastatic prostate cancer, narcotic-dependent, Morphine to be continued. 6. Chronic constipation. Continue his Colace 100 mg p.o. 3 times a day and add MiraLAX 17 g p.o. b.i.d. Also milk of magnesia, as needed. 7. Mildly elevated lactate. Resolved. 8. Cough, that may be secondary to bronchitis. R/o mets, CT chest done and results pending this AM Continue Levaquin Prophylaxis. SCDs to lower extremity for deep venous thrombosis prophylaxis and Protonix for gastrointestinal prophylaxis. DISPOSITION: Likely d/c in 24 hours. Case d/w daughter at the bedside Subjective 24 Hr Interval Summary Free Text/Dictation Resting comfortably. Has no had a BM for 3 days. Started miralax and colace. Exam/Review of Systems Vital Signs Vitals Vital Signs Date Time Temp Pulse Resp B/P Pulse Ox O2 Delivery O2 Flow Rate FiO2 09/02/16 07:53 97.6 57 16 114/59 99 09/01/16 20:10 Nasal Cannula 2.0 Intake and Output 09/01/16 09/01/16 09/02/16 15:00 23:00 07:00 Intake Total 220 ml 1060 ml 560 ml Balance 220 ml 1060 ml 560 ml Exam Constitutional: alert, oriented Head: normocephalic Eyes: nl conjunctiva ENMT: nl external ears & nose Neck: supple Respiratory: clear to auscultation Cardiovascular: regular rate and rhythm Gastrointestinal: soft Results Result Diagram: 09/02/16 0505 09/02/16 0505 Results 24 hrs Laboratory Tests Test 09/02/16 05:05 Anion Gap 11 Basophils # 0.0 Basophils % 0.2 Blood Urea Nitrogen 14 Calcium Level 8.8 Carbon Dioxide Level 29 Chloride Level 99 Creatinine 0.67 Eosinophils # 0.0 Eosinophils % 0.0 Glucose Level 114 Hematocrit 33.9 L Hemoglobin 11.3 L Lymphocytes # 0.6 L Lymphocytes % 9.9 L Magnesium Level 2.0 Mean Corpuscular Hemoglobin 30.2 Mean Corpuscular Hemoglobin Concent 33.3 Mean Corpuscular Volume 90.6 Mean Platelet Volume 9.1 Monocytes # 0.5 Monocytes % 8.1 Neutrophils # 5.1 Neutrophils % 79.5 H Nucleated Red Blood Cells # 0.0 Nucleated Red Blood Cells % 0.0 Phosphorus Level 2.7 Platelet Count 238 Potassium Level 4.6 Red Blood Count 3.74 L Red Cell Distribution Width 13.3 Sodium Level 134 L White Blood Count 6.5 # Medications Medications Current Medications Ondansetron HCl (Zofran Inj) 4 mg Q6H PRN IV NAUSEA AND/OR VOMITING; Start 08/31 at 16:30 Acetaminophen (Tylenol Tab) 650 mg Q6H PRN PO PAIN LEVEL 1-3 OR FEVER; Start at 16:30 Morphine Sulfate (morphine) 2 mg Q4H PRN IV PAIN LEVEL 7-10 Last administered on 09/02/16 11:21; Admin Dose 2 MG; Start 08/31/16 at 16:30 Magnesium Hydroxide (Milk Of Mag) 30 ml DAILY PRN PO CONSTIPATION Last administered on 09/01/16 16:42; Admin Dose 30 ML; Start 08/31/16 at 16:30 Bisacodyl (Dulcolax Supp) 10 mg DAILY PRN [place] CONSTIPATION Last administered on 09/02/16 11:33; Admin Dose 10 MG; Start 08/31/16 at 16:30 Docusate Sodium (Colace) 100 mg TID PO Last administered on 09/02/16 09:49; Admin Dose 100 MG; Start 08/31/16 at 21:00 Pantoprazole (Protonix Tab) 40 mg DAILY@06 PO Last administered on 09/02/16 09: 49; Admin Dose 40 MG; Start 08/31/16 at 16:30 Morphine Sulfate (morphine) 20 mg Q8 PRN PO PAIN LEVEL 7-10; Start 08/31/16 at 16:30 Dexamethasone (Decadron) 4 mg BID PO Last administered on 09/02/16 09:49; Admin Dose 4 MG; Start 08/31/16 at 21:00 Levofloxacin (Levaquin) 500 mg DAILY PO Last administered on 09/02/16 09:49; Admin Dose 500 MG; Start 08/31/16 at 17:00 Guaifenesin/ Codeine Phosphate (Robitussin Ac Liquid Cup) 10 ml Q4H PRN PO COUGH Last administered on 09/01/16 05:10; Admin Dose 10 ML; Start 08/31/16 at 17 :00 Polyethylene Glycol (Miralax) 17 gm BID PO Last administered on 09/02/16 09:48 ; Admin Dose 17 GM; Start 08/31/16 at 21:00 Lactobacillus Acidoph/Bulgaricus (Floranex) 1 tab BID PO Last administered on 09:48; Admin Dose 1 TAB; Start 08/31/16 at 21:00 Levetiracetam 250 mg 250 mg BID PO Last administered on 09/02/16 09:49; Admin Dose 250 MG; Start 08/31/16 at 21:00 Vancomycin HCl 1.5 gm/Sodium Chloride 250 ml @ 83.333 mls/ hr Q24H IVPB Last administered on 09/01/16 14:16; Admin Dose 83.333 MLS/HR; Start 09/01/16 at 14:00 Potassium Chloride/Sodium Chloride (NS-KCl 20 Meq) 1,000 ml @ 80 mls/hr [id number] IV Last administered on 09/02/16 00:22; Admin Dose 80 MLS/HR; Start 09/01/16 at 12:30 Alprazolam (Xanax) 0.5 mg Q8H PRN PO ANXIETY Last administered on 09/02/16 00: 18; Admin Dose 0.5 MG; Start 09/02/16 at 00:30 Morphine Sulfate (morphine) 10 mg Q8 PRN PO PAIN LEVEL 1-5; Start 09/02/16 at 07 :13 NAMRATA GUZMAN MD Sep 02, 2016 12:41
[2016-09-02] MEDS: SOD CHLORIDE 0.9% 1,000 ML IV SCH (14:38)
[2016-09-02] MEDS: VANCOMYCIN 1.5 GM in SOD CHLORIDE 0.9% 250 ML IVPB SCH (15:37)
[2016-09-02] MEDS: morphine LIQ (10 MG/5 ML) CUP PO PRN (18:33)
[2016-09-02 19:51] VITALS: BP 141/63; RESP 18
[2016-09-03] MEDS: SOD CHLORIDE 0.9% 1,000 ML IV SCH ×2 (05:32→13:22)
[2016-09-03] MEDS: PANTOPRAZOLE (EC) 40 MG TAB PO SCH (05:32)
[2016-09-03 06:01] LABS: ADD SCAN DIFF NO
[2016-09-03 06:06] LABS: BASOPHILS % 0.3 % (0.0-2.0); HEMATOCRIT 35.1 % (42.0-52.0); HEMOGLOBIN 11.8 g/dl (14.0-18.0); LYMPHOCYTES # 0.7 10^3/ul (0.8-2.9); LYMPHOCYTES % 9.1 % (15.0-51.0); MEAN CORPUSCULAR HEMOGLOBIN 30.6 pg (29.0-33.0); MEAN CORPUSCULAR HGB CONC 33.6 g/dl (32.0-37.0); MEAN CORPUSCULAR VOLUME 90.9 fl (82.0-101.0); MEAN PLATELET VOLUME 8.8 fl (7.4-10.4); MONOCYTE # 0.5 10^3/ul (0.3-0.9); NEUTROPHIL # 6.2 10^3/ul (1.6-7.5); NEUTROPHILS % 82.1 % (39.0-77.0); PLATELET COUNT 233 10^3/UL (140-415); RED BLOOD COUNT 3.86 10^6/ul (4.70-6.10); RED CELL DISTRIBUTION WIDTH 13.2 % (11.5-14.5); WHITE BLOOD COUNT 7.5 10^3/ul (4.8-10.8)
[2016-09-03 06:34] LABS: POTASSIUM 4.3 mmol/L (3.5-5.1)
[2016-09-03 06:36] LABS: CREATININE 0.67 mg/dl (0.61-1.24)
[2016-09-03 06:37] LABS: CALCIUM 8.7 mg/dl (8.4-10.2)
[2016-09-03 07:37] VITALS: BP 127/60; RESP 18
[2016-09-03] MEDS: LEVETIRACETAM 250 MG TAB PO SCH (10:09)
[2016-09-03] MEDS: LEVOFLOXACIN 500 MG TAB PO SCH (10:09)
[2016-09-03] MEDS: POLYETHYLENE GLYCOL 17 GM PACKET PO SCH (10:09)
[2016-09-03] MEDS: DOCUSATE SODIUM 100 MG CAP PO SCH ×2 (10:09→12:36)
[2016-09-03] MEDS: LACTOBACILLUS CHEW TAB PO SCH (10:09)
[2016-09-03] MEDS: DEXAMETHASONE 4 MG TAB PO SCH (10:09)
[2016-09-03] MEDS: morphine LIQ (10 MG/5 ML) CUP PO PRN (10:15)
--- NOTE | 2016-09-03 13:06 | PN ---
Date/Time of Note Date/Time of Note DATE: 09/03/16 TIME: 13:00 Assessment/Plan VTE Prophylaxis VTE Prophylaxis Intervention: SCD's Lines/Catheters IV Catheter Type (from [facility]): Peripheral IV Urinary Cath still in place: No Assessment/Plan Assessment/Plan 75-year-old male with: 1. Coag neg staph blood cx 2/2 likely contaminant, Repeat blood cx NGTD WBC wnl and afebrile D/c Vanco 2. Apparent severe hyponatremia with Na 119, fortunately was a lab error. Resolved D/c IVF. 3. 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 Patient has completed chemotherapy; at this point, they are contemplating radiation therapy, which is likely palliative. He has been started on Decadron for his brain metastases. Twyla added. 4. Mild dehydration. Resolved post IVF overnight Encouraging p.o. intake. 5. Chronic pain, secondary to metastatic prostate cancer, narcotic-dependent, Morphine to be continued. 6. Chronic constipation. Continue his Colace 100 mg p.o. 3 times a day and add MiraLAX 17 g p.o. b.i.d. Also milk of magnesia, as needed. 7. Mildly elevated lactate. Resolved. 8. Cough, that may be secondary to bronchitis. No mets on CT chest, findings c /w bronchitis Continue Levaquin Prophylaxis. SCDs to lower extremity for deep venous thrombosis prophylaxis and Protonix for gastrointestinal prophylaxis. DISPOSITION: D/c home with HH RN and PT and followup with PCP within 1 week Subjective 24 Hr Interval Summary Free Text/Dictation Patient doing Ok and remains stable Coag neg staph 2/2 blood cx likely contaminant, discussed with PCP Dr Kraus D/c home today with HH RN and PT check and PCP follow up Exam/Review of Systems Vital Signs Vitals Vital Signs Date Time Temp Pulse Resp B/P Pulse Ox O2 Delivery O2 Flow Rate FiO2 09/03/16 07:37 98.8 62 18 127/60 95 09/02/16 22:00 Nasal Cannula 2.0 Intake and Output 09/02/16 09/02/16 09/03/16 15:00 23:00 07:00 Intake Total 530 ml 1700 ml Balance 530 ml 1700 ml Exam Constitutional: alert, frail, oriented Respiratory: clear to auscultation, normal air movement Cardiovascular: nl pulses, regular rate and rhythm Gastrointestinal: non-tender, soft Musculoskeletal: nl extremities to inspection Neurological: [employer] II-XII intact, lethargic, nl mental status, nl speech, other (generalised weakness ) Results Result Diagram: 09/03/16 0505 09/03/16 0505 Results 24 hrs Laboratory Tests Test 09/03/16 05:05 Anion Gap 9 Basophils # 0.0 Basophils % 0.3 Blood Urea Nitrogen 14 Calcium Level 8.7 Carbon Dioxide Level 30 Chloride Level 99 Creatinine 0.67 Eosinophils # 0.0 Eosinophils % 0.0 Glucose Level 109 Hematocrit 35.1 L Hemoglobin 11.8 L Lymphocytes # 0.7 L Lymphocytes % 9.1 L Mean Corpuscular Hemoglobin 30.6 Mean Corpuscular Hemoglobin Concent 33.6 Mean Corpuscular Volume 90.9 Mean Platelet Volume 8.8 Monocytes # 0.5 Monocytes % 6.0 Neutrophils # 6.2 Neutrophils % 82.1 H Nucleated Red Blood Cells # 0.0 Nucleated Red Blood Cells % 0.0 Platelet Count 233 Potassium Level 4.3 Red Blood Count 3.86 L Red Cell Distribution Width 13.2 Sodium Level 134 L White Blood Count 7.5 Medications Medications Current Medications Ondansetron HCl (Zofran Inj) 4 mg Q6H PRN IV NAUSEA AND/OR VOMITING; Start 08/31 at 16:30 Acetaminophen (Tylenol Tab) 650 mg Q6H PRN PO PAIN LEVEL 1-3 OR FEVER; Start at 16:30 Morphine Sulfate (morphine) 2 mg Q4H PRN IV PAIN LEVEL 7-10 Last administered on 09/02/16 15:37; Admin Dose 2 MG; Start 08/31/16 at 16:30 Magnesium Hydroxide (Milk Of Mag) 30 ml DAILY PRN PO CONSTIPATION Last administered on 09/01/16 16:42; Admin Dose 30 ML; Start 08/31/16 at 16:30 Bisacodyl (Dulcolax Supp) 10 mg DAILY PRN OK CONSTIPATION Last administered on 09/02/16 11:33; Admin Dose 10 MG; Start 08/31/16 at 16:30 Docusate Sodium (Colace) 100 mg TID PO Last administered on 09/03/16 12:36; Admin Dose 100 MG; Start 08/31/16 at 21:00 Pantoprazole (Protonix Tab) 40 mg DAILY@06 PO Last administered on 09/03/16 05: 32; Admin Dose 40 MG; Start 08/31/16 at 16:30 Morphine Sulfate (morphine) 20 mg Q8 PRN PO PAIN LEVEL 7-10 Last administered on 09/03/16 10:15; Admin Dose 20 MG; Start 08/31/16 at 16:30 Dexamethasone (Decadron) 4 mg BID PO Last administered on 09/03/16 10:09; Admin Dose 4 MG; Start 08/31/16 at 21:00 Levofloxacin (Levaquin) 500 mg DAILY PO Last administered on 09/03/16 10:09; Admin Dose 500 MG; Start 08/31/16 at 17:00 Guaifenesin/ Codeine Phosphate (Robitussin Ac Liquid Cup) 10 ml Q4H PRN PO COUGH Last administered on 09/01/16 05:10; Admin Dose 10 ML; Start 08/31/16 at 17 :00 Polyethylene Glycol (Miralax) 17 gm BID PO Last administered on 09/03/16 10:09 ; Admin Dose 17 GM; Start 08/31/16 at 21:00 Lactobacillus Acidoph/Bulgaricus (Floranex) 1 tab BID PO Last administered on 10:09; Admin Dose 1 TAB; Start 08/31/16 at 21:00 Levetiracetam 250 mg 250 mg BID PO Last administered on 09/03/16 10:09; Admin Dose 250 MG; Start 08/31/16 at 21:00 Vancomycin HCl/ Sodium Chloride (Vancocin/NS) 250 ml @ 83.333 mls/ hr Q24H IVPB Last administered on 09/02/16 15:37; Admin Dose 83.333 MLS/HR; Start at 14:00 Alprazolam (Xanax) 0.5 mg Q8H PRN PO ANXIETY Last administered on 09/02/16 00: 18; Admin Dose 0.5 MG; Start 09/02/16 at 00:30 Morphine Sulfate 10 mg 10 mg Q8 PRN PO PAIN LEVEL 1-5; Start 09/02/16 at 07:13 Sodium Chloride (NS) 1,000 ml @ 80 mls/hr [id number] IV Last administered on 05:32; Admin Dose 80 MLS/HR; Start 09/02/16 at 13:00 KEKE ARDON Sep 03, 2016 13:06
== END 2016-09-03 16:35 | disposition home or self-care (01) ==
LOC: E/R 11:34 → TEL 14:09 → INTOOBSV 14:09 → MS2 15:35
PROVIDERS: ADMIT Internal Medicine; ATTEND Internal Medicine
DX: E87.1 Hypo-osmolality and hyponatremia (principal); C61 Malignant neoplasm of prostate; C79.31 Secondary malignant neoplasm of brain; C79.51 Secondary malignant neoplasm of bone; K59.00 Constipation, unspecified
CPT/HCPCS: 71010; 71250; 80048; 80053; 81001; 83605; 83735; 84100; 85025; 87040; 87070; 87086; 93005; 96365; 96366; 96374; 96375; 96376; 97110; 97530; 99285; G0378; J2270; J3370; J3480; J7030; J7040; J7050; 81003; 99217

== ENCOUNTER 2016-09-14 16:28 | Inpatient (IN) | payer BC ==
[~2016-09-14] VITALS: Ht 170.2 cm; Wt 62.6 kg
[~2016-09-14 16:28] MED LIST changes: +ACID1TAB14 PO; +ALPR0.5T6 PO; -Acetaminophen PO; +DEXA4TAB PO; -FLORANEX PO; +LEVE250T66 PO; +LEVO500T10 PO; -LEVO750T25 PO; -LORA1TAB PO; -MAGN296S40 PO; +MORP10SO4 PO; -OMEP10CA4 PO; +PANT40TA3 PO; -Vancomycin Hcl PO
[2016-09-14] MEDS ORDERED: SOD CHLORIDE 0.9% 1,000 ML IV STA (17:35)
[2016-09-14] MEDS ORDERED: ONDANSETRON 4 MG INJ IV STA (17:35)
[2016-09-14 18:19] LABS: ADD SCAN DIFF NO
[2016-09-14 18:23] LABS: BASOPHILS % 0.1 % (0.0-2.0); LYMPHOCYTES # 0.8 10^3/ul (0.8-2.9); LYMPHOCYTES % 3.9 % (15.0-51.0); MEAN CORPUSCULAR HEMOGLOBIN 30.5 pg (29.0-33.0); MEAN CORPUSCULAR VOLUME 87.1 fl (82.0-101.0); MEAN PLATELET VOLUME 9.2 fl (7.4-10.4); MONOCYTE # 1.4 10^3/ul (0.3-0.9); MONOCYTES % 6.3 % (0.0-11.0); NEUTROPHILS % 88.8 % (39.0-77.0); PLATELET COUNT 186 10^3/UL (140-415); RED BLOOD COUNT 4.59 10^6/ul (4.70-6.10); WHITE BLOOD COUNT 21.4 10^3/ul (4.8-10.8)
[2016-09-14 18:34] LABS: ALBUMIN 3.3 g/dl (3.3-4.9)
[2016-09-14 18:37] LABS: BILIRUBIN,INDIRECT 0.9 mg/dl (0-1.1); BILIRUBIN,TOTAL 0.9 mg/dl (0.2-1.3); CREATININE 0.79 mg/dl (0.61-1.24)
[2016-09-14 18:38] LABS: ALBUMIN/GLOBULIN RATIO 1.22; CALCIUM 8.8 mg/dl (8.4-10.2)
[2016-09-14 18:55] LABS: POTASSIUM 2.4 mmol/L (3.5-5.1)
[2016-09-14] MEDS ORDERED: SODIUM CHLORIDE 0.9% 1L BAG IV* STA (19:16)
--- NOTE | 2016-09-14 19:18 | RADRPT ---
AMENDMENT: 09/14/2016 7:21:25 PM James Gerard MD ADDENDUM: These findings and impression [facility] the conclusion of this examination by the undersigned interpreting radiologist o n 09/14/2016 at 1915 hours. PROCEDURE: CT abdomen and pelvis with. contrast. CLINICAL INDICATION: Abdominal pain with known adenopathy in the pelvis. Prostate cancer. TECHNIQUE: Noncontrast CT examination of the abdomen and pelvis, with axial, sagittal and coronal r eformatted images. CTDI: 11.61 mGy and DLP: 694.34 mGy-cm. COMPARISON: CT examination of the abdomen and pelvis dated 08/16/2016. FINDINGS: CT abdomen: New dense atelectasis versus airspace disease of bilateral posterior lung bases, The heart size is normal, without pericardial thickening or effusion. The liver is normal in size and density without evident mass, although there is a 3 cm cyst again se en. There is no evident intrahepatic biliary dilatation. The spleen is normal in size and homogene ous in density. The stomach is partially collapsed, but is grossly unremarkable. The pancreas as v isualized is normal. The gallbladder has a stone; and the biliary tree is otherwise unremarkable an d there is no evidence for biliary dilatation. The adrenal glands are symmetric and normal. 6 cm left renal cyst again seen. New right obstructiv e uropathy with region of obstruction likely within the pelvis associated with pelvic mass. Small n onobstructing calculi in the bilateral kidneys. Left kidney is otherwise unremarkable. The aorta is of normal caliber. Aortic vascular calcifications are present. The soo hepatis geri on is clear. Interval moderate to large stool burden and air in the colon, perhaps secondary to obstruction of th e rectum. CT pelvis: Left periaortic adenopathy in the upper pelvis is increased in size over interval, now measuring 59 x 36 mm and was 46 x 29 mm. Deep central pelvic adenopathy now measures 75 x 100 mm and previously measured 60 by 74 mm. Mural thickening is suspected in the distal sigmoid colon and rectum, and the structures are indisti nguishable from the adjacent adenopathy. Air and fluid is seen in the prominent sigmoid colon, compatible with obstruction. Likely invasion versus compression of the distal right ureter resulting in right obstructive uropath y. Cannot exclude invasion of urinary bladder by the pelvic mass. Small calcifications are seen in the distal urinary bladder versus prostate. The small bowel loops situated within the pelvis are unremarkable. Mild pelvic fluid is seen over the cecum in the expected region of the appendix, and the appendix is otherwise not specifically identified. Mild free fluid in the left my pelvis. The surrounding osseous structures are remarkable for mild degenerative spondylosis of the spine. N o osteolytic or osteoblastic lesion is detected. IMPRESSION: 1. Increased size of left periaortic mass and the mass in the pelvis, now involving the distal sigm oid colon and rectum. 2. [id number] amount of stool and air from the cecum to the sigmoid colon, compatible with n ew bowel obstruction secondary to mass at the distal sigmoid colon and rectum. 3. New right obstructive uropathy, likely secondary to mass invasion versus compression of the dist al right ureter. RPTAT: [facility] Physician Bib Date Time Electronically viewed and signed by Physician Bib on 09/14/2016 19:21 RS/
[2016-09-14] MEDS ORDERED: TRAM-40 PO (19:27)
--- NOTE | 2016-09-14 20:18 | RADRPT ---
PROCEDURE: XR Chest. CLINICAL INDICATION: Leukocytosis. TECHNIQUE: Single frontal view of the chest was obtained COMPARISON: 08/31/2016 FINDINGS: The heart and mediastinum are within normal limits. Mild right mid lung and lung base patchy air space disease, otherwise nonspecific. The left lung re lillian clear. There is no pleural effusion or pneumothorax. IMPRESSION: 1. Mild air space disease and right mid lung and lung base, otherwise nonspecific. 2. In setting of leukocytosis findings may represent early pneumonia. RPTAT: [facility] Physician Bib Date Time Electronically viewed and signed by Physician Bib on 09/14/2016 20:17 RS/
[2016-09-14 20:20] LABS: INR 1.11; PROTIME 14.3 Sec (12.2-14.2); PT RATIO 1.1
[2016-09-14 20:21] LABS: PARTIAL THROMBOPLASTIN TIME 29.7 Sec (25.0-35.0)
[2016-09-14] MEDS: POTASSIUM CHLORIDE 50 ML IVPB SCH ×2 (20:53→22:56)
--- NOTE | 2016-09-14 22:58 | ERA ---
ER Documentation Chief Complaint Date/Time DATE: 09/14/16 TIME: 22:50 Chief Complaint BIB RA FOR EVAL OF CONSTIPATION. LAST BM 3 DAYS AGO HPI 75-year-old male is brought in by family for inability have a bowel movement 3 days. Patient is a terminal prostate cancer patient with metastases to the brain. He has not walked for approximately 1 year. He did vomit earlier today. Family has not noted any fevers. Patient currently states he does not have pain does not want any pain medication although the family does state that he missed his morning dose of morphine because he was vomiting. According to family patient is at his baseline mental status and is able to answer questions. ROS All systems reviewed and are negative except as per history of present illness. Medications Home Meds Active Scripts Polyethylene Glycol* (Miralax*) 17 Gm Powd.pack, 17 GM PO BID for 30 Days, 3 Refills Prov:KEKE ARDON 09/01/16 Levetiracetam* (Keppra*) 250 Mg Tab, 250 MG PO BID for 30 Days, TAB 3 Refills Prov:KEKE ARDON 09/01/16 Lactobacillus Acidoph/Bulgaricus* (Floranex*) 1 Each Tablet, 1 TAB PO BID for 14 Days, TAB Prov:KEKE ARDON 09/01/16 Reported Medications Tramadol Hcl* (Ultram*) 50 Mg Tablet, 50 MG PO QID Y for PAIN, TAB 09/14/16 Morphine Sulfate* (Morphine* Liq) 10 Mg/5 Ml Solution, 10-20 MG PO TID Y for PAIN, ML 08/31/16 Dexamethasone* (Dexamethasone*) 4 Mg Tablet, 4 MG PO TID, TAB 08/31/16 Pantoprazole* (Protonix*) 40 Mg Tablet.dr, 40 MG PO DAILY, TAB 08/31/16 Discontinued Reported Medications Levofloxacin* (Levofloxacin*) 500 Mg Tablet, 500 MG PO DAILY, TAB FOR 7 DAYS STARTED 08-30-16 08/31/16 Alprazolam* (Alprazolam*) 0.5 Mg Tablet, 0.5 MG PO Q8H Y for ANXIETY, TAB 08/31/16 Discontinued Scripts Docusate Sodium* (Colace*) 100 Mg Capsule, 100 MG PO TID, #30 CAP Prov:CÉSAR LUKE DO 08/16/16 Allergies Allergies: Coded Allergies: hydrocodone (Unverified Allergy, Severe, 09/14/16) palpatations PMhx/Soc History of Surgery: Yes (prostate sx for scar tissue removal) Anesthesia Reaction: No Hx Neurological Disorder: Yes (brain cancer) Hx Respiratory Disorders: No Hx Cardiac Disorders: No Hx Psychiatric Problems: No Hx Miscellaneous Medical Probl: Yes (METASTATIC SMALL CELL PROSTATE CA, C-DIFF COLITIS) Hx Alcohol Use: No Hx Substance Use: No Hx Tobacco Use: No Smoking Status: Never smoker Physical Exam Vitals Vital Signs Date Time Temp Pulse Resp B/P Pulse Ox O2 Delivery O2 Flow Rate FiO2 09/14/16 21:38 81 118/71 97 Room Air 09/14/16 19:45 76 16 114/74 96 Room Air 09/14/16 16:35 98.9 108 19 103/65 97 Physical Exam Const: [] No distress Head: Atraumatic Eyes: Normal Conjunctiva, EOMI, PERRLA ENT: Normal External Ears, Nose and Mouth. Mucous membranes of the mouth are dry. Neck: Full range of motion..~ No meningismus. Resp: Decreased bibasilar breath sounds Cardio: Regular rate and rhythm, no murmurs Abd: Soft, mild lower abdominal tenderness without guarding or rebound, non distended. Normal bowel sounds Skin: No petechiae or rashes Back: No midline or flank tenderness Ext: No cyanosis, or edema, poor skin turgor Neur: Awake and alert and oriented 3, no focal deficits Psych: Normal Mood and Affect Result Diagram: 09/14/16 1755 09/14/16 1755 Results 24 hrs Laboratory Tests Test 09/14/16 17:55 09/14/16 20:05 09/14/16 21:19 Alanine Aminotransferase (ALT/SGPT) 18IU/L Albumin 3.3g/dl Albumin/Globulin Ratio 1.22 Alkaline Phosphatase 115IU/L Anion Gap 12 Aspartate Amino Transf (AST/SGOT) 38IU/L Basophils # 0.010^3/ul Basophils % 0.1% Blood Urea Nitrogen 23mg/dl Calcium Level 8.8mg/dl Carbon Dioxide Level 30mmol/L Chloride Level 95mmol/L Creatinine 0.79mg/dl Direct Bilirubin 0.00mg/dl Eosinophils # 0.010^3/ul Eosinophils % 0.0% Globulin 2.70g/dl Glucose Level 127mg/dl Hematocrit 40.0% Hemoglobin 14.0g/dl Indirect Bilirubin 0.9mg/dl Lipase 47U/L Lymphocytes # 0.810^3/ul Lymphocytes % 3.9% Mean Corpuscular Hemoglobin 30.5pg Mean Corpuscular Hemoglobin Concent 35.0g/dl Mean Corpuscular Volume 87.1fl Mean Platelet Volume 9.2fl Monocytes # 1.410^3/ul Monocytes % 6.3% Neutrophils # 19.010^3/ul Neutrophils % 88.8% Nucleated Red Blood Cells # 0.010^3/ul Nucleated Red Blood Cells % 0.0/100WBC Platelet Count 46516^3/UL Potassium Level 2.4mmol/L Red Blood Count 4.5910^6/ul Red Cell Distribution Width 14.0% Sodium Level 135mmol/L Total Bilirubin 0.9mg/dl Total Protein 6.0g/dl White Blood Count 21.410^3/ul Activated Partial Thromboplast Time 29.7Sec INR International Normalized Ratio 1.11 Lactic Acid Level 3.1mmol/L 1.7mmol/L Prothrombin Time 14.3Sec Prothrombin Time Ratio 1.1 Troponin I 0.095ng/ml Current Medications Medications (Trade) Dose Ordered Sig/Beata Route PRN Reason Start Time Stop Time Status Last Admin Dose Admin Sodium Chloride (NS) 1,000 ml @ 1,000 mls/hr Q1H STAT IV 09/14/16 17:35 09/14/16 18:34 DC 09/14/16 18:25 Ondansetron HCl 4 mg 4 mg ONCE STAT IV 09/14/16 17:35 09/14/16 17:37 DC 09/14/16 18:26 Potassium Chloride (KCl 10 MEQ/50 ML SW) 50 ml @ 50 mls/hr Q1H IVPB 09/14/16 19:30 09/14/16 22:29 DC 09/14/16 20:53 Sodium Chloride (NS) 2,170 ml BOLUS OVER 2 HOURS STAT IV* 09/14/16 19:16 09/14/16 19:19 DC 09/14/16 20:53 Ondansetron HCl (Zofran Inj) 4 mg ER BRIDGE PRN IV NAUSEA AND/OR VOMITING 09/14/16 23:00 09/15/16 22:59 Acetaminophen (Tylenol Tab) 650 mg ER BRIDGE PRN PO MILD PAIN/FEVER 09/14/16 23:00 09/15/16 22:59 Procedures/MDM 75-year-old male with compressive lesions secondary to metastatic cancer. Possible bowel obstruction. Patient also has hypokalemia that will need to be repleted that is low. Patient was given IV fluid hydration as well as IV potassium. He was given Zofran which she says currently is resolving his nausea. He denies any need for pain medication currently. I spoke with Dr. Harvey regarding the patient's obstruction. He did come to the ER to see the patient. Patient does have leukocytosis which may be related to urinary tract infection since he does have obstructive uropathy currently. Patient and family are refusing a straight catheter and thus no urine is been able to be collected as of yet. Condom catheter is placed on the patient. He was treated with cefepime empirically for infection to prevent progression to septic shock. Technically meet sepsis criteria for initially elevated heart rate and leukocytosis. Spoke with , who will be admitting the patient to telemetry as he is currently receiving potassium. Critical care time 31 minutes: This includes treatment of sepsis in a very debilitated patient, early antibiotic administration, careful fluid administration of frail patient, chart review, discussion with admitting doctor , discussion with surgeon, discussion with patient and family, multiple visits the patient's bedside to reassess hemodynamic status and check for fluid overload after multiple liters of fluid administration. This does not include any billable procedure Departure Diagnosis: Primary Impression: Bowel obstruction Additional Impressions: Hypokalemia Lactic acidosis Obstructive uropathy Condition: Serious CÉSAR LUKE DO Sep 14, 2016 22:58
[2016-09-14] MEDS ORDERED: ACETAMINOPHEN 325 MG TAB PO PRN (23:00)
[2016-09-14] MEDS ORDERED: ONDANSETRON 4 MG INJ IV PRN (23:00)
[2016-09-15] VITALS (12 sets, daily range): BP systolic 118–141; BP diastolic 56–66; PULSE 62–81; RESP 16–20; Ht 170.2 cm; Wt 62.6 kg
[2016-09-15] MEDS: POTASSIUM CHLORIDE 50 ML IVPB SCH (02:53)
[2016-09-15] MEDS ORDERED: ONDANSETRON 4 MG INJ IV PRN (04:00)
[2016-09-15] MEDS ORDERED: DOCUSATE SODIUM 100 MG CAP PO PRN (04:00)
[2016-09-15] MEDS ORDERED: BISACODYL 10 MG SUPP PR PRN (04:00)
[2016-09-15] MEDS ORDERED: MAGNESIUM HYDROXIDE 30ML CUP PO PRN (04:00)
[2016-09-15] MEDS ORDERED: morphine LIQ (10 MG/5 ML) CUP PO PRN ×2 (04:00)
[2016-09-15] MEDS ORDERED: NACL 0.9% 3 ML SYG IV SCH (04:00)
[2016-09-15] MEDS ORDERED: ACETAMINOPHEN 325 MG TAB PO PRN (04:00)
[2016-09-15] MEDS ORDERED: D5-NS + KCL 40 MEQ 1,000 ML IV SCH (04:30)
[2016-09-15] MEDS: PANTOPRAZOLE 40 MG INJ IV SCH (05:48)
[2016-09-15] MEDS: traMADol 50 MG TAB PO PRN ×2 (05:50→16:31)
[2016-09-15] MEDS: POTASSIUM CHLORIDE 40 MEQ in DEXTROSE 5%-0.9% NACL 1,000 ML IV SCH ×3 (06:28→23:41)
[2016-09-15] MEDS ORDERED: ALPR0.5T6 PO (06:40)
[2016-09-15] MEDS: LEVETIRACETAM 250 MG TAB PO SCH ×2 (08:45→20:39)
[2016-09-15] MEDS: LACTOBACILLUS CHEW TAB PO SCH ×2 (08:45→20:52)
[2016-09-15] MEDS: POLYETHYLENE GLYCOL 17 GM PACKET PO SCH ×2 (08:45→20:44)
[2016-09-15 08:50] LABS: ADD SCAN DIFF NO
[2016-09-15] MEDS: ENOXAPARIN 30 MG/0.3 ML SYG SC SCH (08:53)
[2016-09-15 08:59] LABS: BASOPHILS % 0.1 % (0.0-2.0); EOSINOPHILS % 0.1 % (0.0-7.0); HEMATOCRIT 33.2 % (42.0-52.0); HEMOGLOBIN 11.6 g/dl (14.0-18.0); LYMPHOCYTES # 0.9 10^3/ul (0.8-2.9); LYMPHOCYTES % 7.8 % (15.0-51.0); MEAN CORPUSCULAR HEMOGLOBIN 30.8 pg (29.0-33.0); MEAN CORPUSCULAR HGB CONC 34.9 g/dl (32.0-37.0); MEAN CORPUSCULAR VOLUME 88.1 fl (82.0-101.0); MEAN PLATELET VOLUME 9.3 fl (7.4-10.4); MONOCYTE # 0.8 10^3/ul (0.3-0.9); MONOCYTES % 7.3 % (0.0-11.0); NEUTROPHIL # 9.5 10^3/ul (1.6-7.5); NEUTROPHILS % 83.8 % (39.0-77.0); PLATELET COUNT 158 10^3/UL (140-415); RED BLOOD COUNT 3.77 10^6/ul (4.70-6.10); RED CELL DISTRIBUTION WIDTH 14.2 % (11.5-14.5); WHITE BLOOD COUNT 11.3 10^3/ul (4.8-10.8)
[2016-09-15] MEDS ORDERED: DEXAMETHASONE 4 MG TAB PO SCH (09:00)
[2016-09-15 09:06] LABS: POTASSIUM 3.8 mmol/L (3.5-5.1)
[2016-09-15 09:09] LABS: CREATININE 0.68 mg/dl (0.61-1.24)
[2016-09-15 09:10] LABS: CALCIUM 8.1 mg/dl (8.4-10.2); MAGNESIUM 1.9 mg/dl (1.7-2.5)
[2016-09-15 09:14] LABS: PHOSPHORUS 1.9 mg/dl (2.5-4.9)
[2016-09-15 09:25] LABS: TROPONIN-I 0.07 ng/ml (0.00-0.12)
[2016-09-15 09:32] LABS: CK-MB 0.99 ng/ml (0.0-2.4)
[2016-09-15] MEDS ORDERED: POTASSIUM PHOSPHATE 30 MM in SOD CHLORIDE 0.9% 250 ML IVPB ONE (11:00)
[2016-09-15] MEDS ORDERED: MAGNESIUM SULFATE 1 GM/D5W 100 ML IVPB ONE (11:00)
[2016-09-15] MEDS ORDERED: MINERAL OIL 133 ML ENEMA PR PRN (12:00)
[2016-09-15] MEDS ORDERED: MINERAL OIL 133 ML ENEMA PR SCH (12:00)
[2016-09-15 13:57] LABS: ADD UMIC YES; URINE BILIRUBIN (Dip) NEGATIVE (NEGATIVE); URINE BLOOD (Dip) 3+ (NEGATIVE); URINE COLOR LT. YELLOW (YELLOW); URINE GLUCOSE (Dip) NEGATIVE (NEGATIVE); URINE KETONES (Dip) NEGATIVE (NEGATIVE); URINE LEUKOCYTE ESTERASE (Dip) NEGATIVE (NEGATIVE); URINE NITRITE (Dip) NEGATIVE (NEGATIVE); URINE TOTAL PROTEIN (Dip) 1+ (NEGATIVE); URINE UROBILINOGEN (Dip) 0.2 E.U./dL (0.1-1.0)
--- NOTE | 2016-09-15 14:07 | HP ---
DATE OF ADMISSION: 09/14/2016 PRIMARY CARE PHYSICIAN: Dr. Leonidas Kraus. PRIMARY ONCOLOGIST: Dr. Walker Fagan. PRIMARY RADIATION ONCOLOGIST: Dr. Mason CHIEF COMPLAINT ON ADMISSION: Generalized weakness and inability to have a bowel movement for 3 day s. 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 The patient has been admitted multiple times to [facility]. He was hoping to be able to make it to radiation therapy, but unfortunately every time he went he was too weak, or was not strong enough to go through it. The patient was brou ght to the emergency department last night with reported increasing abdominal distention, no bowel m ovement for 3 days with discomfort, decreased p.o. intake. On his laboratory data, he was found to be hypokalemic and dehydrated, but on the CAT scan of the abdomen and pelvis, it was found that he h as progression of his intra-abdominal metastasis. Some of them are compressing his sigmoid colon an d causing colonic obstruction from a compressive mass. He also has invasion of one of the kidneys w ith metastasis. He is a very high risk for any medical intervention, including surgery at this poin t. His prognosis is extremely poor with unfortunately progressing metastatic carcinoma which is not responding to any treatment. The patient's family had a discussion with the patient's primary care physician and also with the surgeon, Dr. Harvey. At this point, they have elected to just do comfo rt measures. No surgical intervention. No further chemotherapy or radiation as the patient is not even a candidate. He has been maintained on IV fluids. His potassium is better this morning. He w ill be maintained on IV fluids at this time. The family does agree to hospice evaluation, therefore , [facility] has been contacted and the patient's primary care has been notified. The patient himself is lethargic, he is sometimes awake. He voices to the family that he does not want any further treatm ent for the cancer, but at the same time he seems to be concerned about dying. He seems to understa nd that he has unfortunately a terminal diagnosis and a very poor prognosis currently with only cy mmendation from all the treating physicians, including his outpatient primary care physician, is pal liation and palliative care. After multiple discussions between the family members myself, Dr. Wai alexis and also the surgeon, Dr. Harvey, the patient's family has opted for comfort measures. [facility] will be consulted. ALLERGIES: NO KNOWN ALLERGIES. PAST MEDICAL HISTORY: 1. Metastatic small cell prostate cancer, status post failed chemotherapy with significant progress ion of the disease with the brain mets recently and now a compressive mass within the abdomen causin g colonic obstruction. 2. Status post chemotherapy in 04/01/2016 with no remission and actually progression of the disease is continuing. 3. History of Clostridium difficile colitis. 4. Myoclonic hyponatremia. 5. Protein calorie deficiency and poor appetite. 6. Chronic pain, narcotic dependent secondary to metastatic prostate cancer. 7. Brain mets. SOCIAL HISTORY: The patient lives with family. He is here in [place]. He is legally blind. He i s requiring assistance with all ADLs at this point. PAST SURGICAL HISTORY: None. REVIEW OF SYSTEMS: Very limited. The patient only complains of pain and discomfort throughout his body and also some abdominal distention. OUTPATIENT MEDICATIONS: 1. Alprazolam 0.5 mg q.8 hours p.r.n. anxiety. 2. Keppra 250 mg p.o. b.i.d. 3. Morphine 10-20 mg p.o. t.i.d. p.r.n. pain. 4. Ultram 50 mg p.o. q.i.d. p.r.n. pain. 5. Floranex 1 tab p.o. b.i.d. for 14 days. 6. MiraLax 17 grams p.o. b.i.d. 7. Dexamethasone 4 mg p.o. b.i.d. 8. Protonix 40 mg p.o. daily. PHYSICAL EXAMINATION: VITAL SIGNS: Temperature is 98.2, heart rate of 81, sinus rhythm, respiratory rate of 17, blood pre ssure 118/66. The patient is satting 95%. He is currently on room air. GENERAL: He is alert. He is oriented x2 to 3 at least. He knows who the doctors are, who his fami ly members are, and the dire situation he is in. He is no acute distress currently, except for some occasional complaints of generalized pain. HEENT: Pupils are equally round and reactive to light. Extraocular muscles are intact. Anicteric sclerae. NECK: No JVD, no thyromegaly noted. HEART: Regular rate and rhythm. No murmur, rubs, or gallops. LUNGS: Clear to auscultation bilaterally. ABDOMEN: Soft. He does have some tenderness to palpation, mild distention. Bowel sounds are decre ased. EXTREMITIES: No edema, clubbing or cyanosis. Of note, the patient is pale. NEUROLOGIC: The patient is significantly weak and lethargic, bedbound at this point. LABORATORY DATA: CBC with a white count of 11.3, hemoglobin level 11.6, hematocrit of 33.2, platele t count of 158. Chemistry with a sodium of 134, potassium 3.8, chloride 103, bicarbonate 26, BUN 17 , creatinine 0.68, glucose of 107, calcium 8.1, phosphorus 1.9, magnesium of 1.9. Cardiac enzymes a re negative x2 at least 8 hours apart. Urinalysis is not done. INR 1.11, PT 14.3, PTT 29.7. RADIOLOGICAL DATA: 1. Chest x-ray shows right mid lung and lung base patchy airspace disease which is unchanged and no nspecific. 1. CAT scan of the abdomen and pelvis shows increased size of the left periaortic mass and the mass in the pelvis, now involving the distal sigmoid colon and rectum, and moderate to large amount of s tool and air from the cecum to the sigmoid colon, compatible with new bowel obstruction secondary to mass at the distal sigmoid colon and rectum. New right obstructive uropathy, likely secondary to m ass inpatient versus compression of the distal right ureter. ASSESSMENT AND PLAN: This is an unfortunate 75-year-old male with: 1. Colonic obstruction secondary to an extrinsic compression from masses from metastatic small cell prostate cancer. The patient is not a good candidate for any surgical procedures, given his curren t clinical status. The family does understand this point and medically, we are not recommending for any surgical intervention and palliative care at this point. This was discussed with the family, t he surgeon, Dr. Harvey, and primary care physician who agree with this course of action. Hospice aragon s been consulted. The patient will continue supportive care with laxatives and enema. 2. Chronic constipation, now likely secondary to obstructive mass. Continue conservative and palli ation with laxatives and enema. 3. Metastatic small cell prostate cancer with multiple new metastases, including brain metastases a nd progression and enlargement of the intra-abdominal metastasis causing colonic obstruction but als o obstructive uropathy. Palliation is recommended as the patient is not stable for any surgical int ervention or further intervention. [facility] hospice has been consulted. 4. Dehydration and hypokalemia, resolving with IV fluids. 5. Chronic pain secondary to metastatic prostate cancer. Continue narcotics. 6. Protein calorie deficiency, now moderate to severe with decreased p.o. intake. The patient is t o go on palliation and hospice in the next 24 hours. 2. Prophylaxis. SCDs to lower extremities for DVT prophylaxis and Protonix for gastrointestinal pr ophylaxis to be continued. DISPOSITION: Again, the patient's prognosis is extremely poor. Hospice has been contacted. [facility] will meet with the family. I also started addressing the code status. The daughter who was at the bedside, is a little more reluctant of moving forward, so for now she wants FULL CODE until meeting with hospice. I have conveyed to her that a DNR status, will be more appropriate for the diandra dao at this time. Dictated By: KEKE DAHL/DOUGLAS Conf#: [id number] DID#: [id number]
[2016-09-15 14:12] LABS: BACTERIA,URINE RARE
[2016-09-15] MEDS: morphine LIQ (10 MG/5 ML) CUP PO PRN (19:55)
[2016-09-15] MEDS: DEXAMETHASONE 4 MG TAB PO SCH (20:40)
[2016-09-16] VITALS (13 sets, daily range): BP systolic 95–138; BP diastolic 42–68; PULSE 61–73; RESP 17–18
[2016-09-16 05:23] LABS: ADD SCAN DIFF NO
[2016-09-16 05:28] LABS: BASOPHILS % 0.1 % (0.0-2.0); HEMATOCRIT 34.7 % (42.0-52.0); HEMOGLOBIN 11.4 g/dl (14.0-18.0); LYMPHOCYTES # 0.7 10^3/ul (0.8-2.9); LYMPHOCYTES % 5.7 % (15.0-51.0); MEAN CORPUSCULAR HEMOGLOBIN 29.9 pg (29.0-33.0); MEAN CORPUSCULAR HGB CONC 32.9 g/dl (32.0-37.0); MEAN CORPUSCULAR VOLUME 91.1 fl (82.0-101.0); MEAN PLATELET VOLUME 9.2 fl (7.4-10.4); MONOCYTE # 0.7 10^3/ul (0.3-0.9); MONOCYTES % 5.9 % (0.0-11.0); NEUTROPHILS % 87.3 % (39.0-77.0); PLATELET COUNT 147 10^3/UL (140-415); RED BLOOD COUNT 3.81 10^6/ul (4.70-6.10); RED CELL DISTRIBUTION WIDTH 14.6 % (11.5-14.5); WHITE BLOOD COUNT 12.5 10^3/ul (4.8-10.8)
[2016-09-16 05:40] LABS: CREATININE 0.86 mg/dl (0.61-1.24)
[2016-09-16 05:41] LABS: CALCIUM 8.3 mg/dl (8.4-10.2)
[2016-09-16 05:47] LABS: MAGNESIUM 2.2 mg/dl (1.7-2.5)
[2016-09-16] MEDS: PANTOPRAZOLE 40 MG INJ IV SCH (06:47)
[2016-09-16] MEDS: LACTOBACILLUS CHEW TAB PO SCH ×2 (08:41→20:51)
[2016-09-16] MEDS: POLYETHYLENE GLYCOL 17 GM PACKET PO SCH ×2 (08:41→20:51)
[2016-09-16] MEDS: DEXAMETHASONE 4 MG TAB PO SCH ×2 (08:41→20:51)
[2016-09-16] MEDS: LEVETIRACETAM 250 MG TAB PO SCH ×2 (08:41→20:51)
[2016-09-16] MEDS: ENOXAPARIN 30 MG/0.3 ML SYG SC SCH (08:44)
--- NOTE | 2016-09-16 11:15 | PN ---
Date/Time of Note Date/Time of Note DATE: 09/16/16 TIME: 11:11 Assessment/Plan VTE Prophylaxis VTE Prophylaxis Intervention: SCD's Lines/Catheters IV [facility]ter [facility] (from [facility]): Peripheral IV Urinary Cath still in place: No Assessment/Plan Assessment/Plan Unfortunate 75-year-old male with: 1. Colonic obstruction secondary to extrinsic compression from masses from metastatic small cell prostate cancer. Patient is not a good candidate for any surgical procedures, given his current clinical status. The family does understand this point and medically, we are not recommending for any surgical intervention and palliative care at this point. Discussed with the family, Surgeon, Dr. Harvey, and primary care physician who agree with this course of action. Continue supportive care with laxatives and enema. [facility] has been consulted and patient can discharge home with hospice as of today. 2. Chronic constipation, now likely secondary to obstructive mass. Continue conservative and palliation with laxatives and enema. 3. Metastatic small cell prostate cancer with multiple new metastases, including brain metastases and progression and enlargement of the intra- abdominal metastasis causing colonic obstruction but also obstructive uropathy. Hospice/Palliation is recommended as the patient is not stable for any surgical intervention or further intervention. 4. Dehydration and hypokalemia, resolved with IV fluids. 5. Chronic pain secondary to metastatic prostate cancer. Continue narcotics. 6. Protein calorie deficiency, now moderate to severe with decreased p.o. intake. Hospice, pleasure feedings. Prophylaxis. SCDs to lower extremities for DVT prophylaxis and Protonix for gastrointestinal prophylaxis. DISPOSITION: Prognosis is extremely poor. D/c home with [facility] as of today Need to re address code status with family while on Hospice, I have conveyed to her that a DNR status/comfort measures, would be more appropriate for the patient. Subjective 24 Hr Interval Summary Free Text/Dictation Patient awake and laying bed. He verbalized he is not feeling well No fevers and VSS Blood cx 1/2 with GPC likely contaminant, repeat blood cx pending Patient to discharge home today with [facility] once signed up Exam/Review of Systems Vital Signs Vitals Vital Signs Date Time Temp Pulse Resp B/P Pulse Ox O2 Delivery O2 Flow Rate FiO2 09/16/16 08:16 97.9 68 17 130/62 95 09/15/16 00:05 Room Air Intake and Output 09/15/16 09/15/1609/16/17 15:00 23:00 07:00 Intake Total 100 ml 1760 ml 700 ml Output Total 300 ml Balance 100 ml 1460 ml 700 ml Exam Constitutional: alert, frail, oriented Respiratory: clear to auscultation, normal air movement Cardiovascular: nl pulses, regular rate and rhythm Gastrointestinal: soft, tender (diffusely especially pelvic area ) Musculoskeletal: other (atrophied muscles ) Extremities: normal pulses, other (no winsome , clubbing or cyanosis ) Results Result Diagram: 09/16/16 0500 09/16/16 0500 Results 24 hrs Laboratory Tests Test 09/15/16 13:00 09/16/16 05:00 Urine Bacteria RARE Urine Bilirubin NEGATIVE Urine Clarity CLEAR Urine Color LT. YELLOW Urine Epithelial Cells RARE Urine Glucose NEGATIVE Urine Hemoglobin 3+ H Urine Ketones NEGATIVE Urine Leukocyte Esterase NEGATIVE Urine Microscopic RBC 5-10 Urine Microscopic WBC 0-2 Urine Nitrite NEGATIVE Urine Specific [employer] 1.010 Urine Total Protein 1+ H Urine Urobilinogen 0.2 E.U./dL Urine pH 6.0 Anion Gap 14 Basophils # 0.0 Basophils % 0.1 Blood Urea Nitrogen 14 Calcium Level 8.3 L Carbon Dioxide Level 26 Chloride Level 104 Creatinine 0.86 Eosinophils # 0.0 Eosinophils % 0.0 Glucose Level 101 Hematocrit 34.7 L Hemoglobin 11.4 L Lymphocytes # 0.7 L Lymphocytes % 5.7 L Magnesium Level 2.2 Mean Corpuscular Hemoglobin 29.9 Mean Corpuscular Hemoglobin Concent 32.9 Mean Corpuscular Volume 91.1 Mean Platelet Volume 9.2 Monocytes # 0.7 Monocytes % 5.9 Neutrophils # 11.0 H Neutrophils % 87.3 H Nucleated Red Blood Cells # 0.0 Nucleated Red Blood Cells % 0.0 Phosphorus Level 3.0 Platelet Count 147 Potassium Level 5.0 Red Blood Count 3.81 L Red Cell Distribution Width 14.6 H Sodium Level 139 White Blood Count 12.5 H Medications Medications Current Medications Ondansetron HCl (Zofran Inj) 4 mg Q6H PRN IV NAUSEA AND/OR VOMITING; Start at 04:00 Acetaminophen (Tylenol Tab) 650 mg Q6H PRN PO PAIN LEVEL 1-3 OR FEVER; Start at 04:00 Docusate Sodium (Colace) 100 mg Q12H PRN PO CONSTIPATION Last administered on 05:48; Admin Dose 100 MG; Start 09/15/16 at 04:00 Magnesium Hydroxide (Milk Of Mag) 30 ml DAILY PRN PO CONSTIPATION; Start at 04:00 Bisacodyl (Dulcolax Supp) 10 mg DAILY PRN [place] CONSTIPATION; Start 09/15/16 at 04 :00 Pantoprazole (Protonix Iv) 40 mg DAILY@06 IV Last administered on 09/16/16 06: 47; Admin Dose 40 MG; Start 09/15/16 at 06:00 Enoxaparin Sodium (Lovenox) 30 mg DAILY SC Last administered on 09/16/16 08:44 ; Admin Dose 30 MG; Start 09/15/16 at 09:00 Lactobacillus Acidoph/Bulgaricus (Floranex) 1 tab BID PO Last administered on 08:41; Admin Dose 1 TAB; Start 09/15/16 at 09:00 Levetiracetam (Keppra) 250 mg BID PO Last administered on 09/16/16 08:41; Admin Dose 250 MG; Start 09/15/16 at 09:00 Polyethylene Glycol (Miralax) 17 gm BID PO Last administered on 09/16/16 08:41 ; Admin Dose 17 GM; Start 09/15/16 at 09:00 Tramadol HCl (Ultram) 50 mg QID PRN PO PAIN Last administered on 09/15/16 16: 31; Admin Dose 50 MG; Start 09/15/16 at 04:00 Morphine Sulfate (morphine) 20 mg Q8H PRN PO PAIN; Start 09/15/16 at 04:00 Morphine Sulfate 10 mg 10 mg TID PRN PO PAIN Last administered on 09/15/16 19: 55; Admin Dose 10 MG; Start 09/15/16 at 04:19 Potassium Chloride/Dextrose/ Sodium Chloride (KCl/D5-NS) 1,020 ml @ 100 mls/hr [id number] IV Last administered on 09/15/16 23:41; Admin Dose 100 MLS/HR; Start 09/15/16 at 05:30 Dexamethasone (Decadron) 4 mg BID PO Last administered on 09/16/16 08:41; Admin Dose 4 MG; Start 09/15/16 at 21:00 Mineral Oil (Fleet Mineral Oil Enema) 133 ml Q48H PRN [place] CONSTIPATION Last administered on 09/15/16t 15:49; Admin Dose 133 ML; Start 09/15/16 at 12:00 KEKE ARDON Sep 16, 2016 11:15
--- NOTE | 2016-09-16 11:16 | PDOCDIS ---
Discharge Instructions CONDITION Patient Condition: Guarded - poor prognosis with metastatic CA HOME CARE INSTRUCTIONS: Special Diet: diet as tolerated ACTIVITY: Activity Restrictions: Slowly Increase Activity FOLLOW UP/APPOINTMENTS Appointments Follow up with [facility] for home hospice KEKE ARDON Sep 16, 2016 11:16
[2016-09-16] MEDS: POTASSIUM CHLORIDE 40 MEQ in DEXTROSE 5%-0.9% NACL 1,000 ML IV SCH ×2 (11:55→23:07)
[2016-09-16] MEDS: morphine LIQ (10 MG/5 ML) CUP PO PRN (20:51)
[2016-09-16] MEDS ORDERED: ZOLPIDEM 5 MG TAB PO ONE (23:30)
[2016-09-17] MEDS: PANTOPRAZOLE 40 MG INJ IV SCH (05:35)
[2016-09-17] MEDS: traMADol 50 MG TAB PO PRN ×2 (05:39→19:02)
[2016-09-17 07:51] VITALS: BP 125/59; RESP 18
--- NOTE | 2016-09-17 08:07 | CONS ---
DATE OF ADMISSION: 09/14/2016 DATE OF CONSULTATION: 09/14/2016 INDICATIONS: Mr. Kidd is a 75-year-old male with known metastatic prostate cancer, who present ed to the ER with a 3-day history of not having a bowel movement. The patient has known metastatic cancer and has in the rectum. His workup is consistent with a large bowel obstruction, with a transition point in the rectal area. I was called for consultation. PAST MEDICAL HISTORY: Significant for metastatic small cell prostate CA, status post chemotherapy i n 2016. Status post surgery x2, as well as scheduled for radiation therapy for brain metastasis sta rting today. C. diff colitis, protein calorie malnutrition and poor appetite, chronic pain, narcoti c dependent. SOCIAL HISTORY: He lives in [place] with his family. He is legally blind. PAST SURGICAL HISTORY: Prostatectomy, as well as debulking surgery. MEDICATIONS: 1. Levothyroxine. 2. Alprazolam. 3. Morphine. 4. Colace. 5. Protonix. 6. Dexamethasone. 7. MiraLax. 8. Magnesium citrate. PHYSICAL EXAMINATION: GENERAL: Mr. Kidd is a 72-year-old male, cachectic appearing, in no apparent distress. VITAL S IGNS: He is afebrile. Vital signs are stable. CHEST: Clear to auscultation bilaterally. HEART: Regular rhythm. ABDOMEN: Soft, nondistended. LABORATORY: His labs reveal a white count of 21, hematocrit of 40 and platelets of 186. Sodium 135, potassium 2.4, chloride 95, CO2 30, BUN and creatinine 23 and 0.8, and a glucose of 127. CT of his abdomen and pelvis revealed increased size of left mass and the mass in the pelvis sigmoid and rectum. Moderate to large amount of stool and free air from the cecum to the sig moid colon, compatible with new bowel obstruction secondary to a mass in the distal sigmoid colon an d rectum. New right obstructive uropathy. ASSESSMENT AND PLAN: Mr. Davis is a 75-year-old male with a likely large bowel obstruction from me tastatic prostate cancer. I discussed with the family that he will likely need a diverting colostom y. Prior to that I think he should be seen by hematology/oncology, and also some more exact imaging should be performed of his rectum to make sure he is definitely obstructed. It will be performed to timoteo, then will . If not, he will need a repeat CT with rectal contrast. Dictated By: GONZALEZ JOHNSTON/DOUGLAS Conf#: [id number] DID#: [id number]
[2016-09-17] MEDS: POTASSIUM CHLORIDE 40 MEQ in DEXTROSE 5%-0.9% NACL 1,000 ML IV SCH ×2 (10:04→18:42)
[2016-09-17] MEDS: DEXAMETHASONE 4 MG TAB PO SCH (10:04)
[2016-09-17] MEDS: LACTOBACILLUS CHEW TAB PO SCH (10:04)
[2016-09-17] MEDS: POLYETHYLENE GLYCOL 17 GM PACKET PO SCH (10:04)
[2016-09-17] MEDS: LEVETIRACETAM 250 MG TAB PO SCH (10:04)
--- NOTE | 2016-09-17 15:44 | PN ---
Date/Time of Note Date/Time of Note DATE: 09/17/16 TIME: 15:38 Assessment/Plan VTE Prophylaxis VTE Prophylaxis Intervention: SCD's Lines/Catheters IV [facility] (from [facility]): Peripheral IV Urinary Cath still in place: No Assessment/Plan Assessment/Plan Unfortunate 75-year-old male with: 1. Colonic obstruction secondary to extrinsic compression from masses from metastatic small cell prostate cancer. Patient is not a good candidate for any surgical procedures, given his current clinical status. The family does understand this point and medically, we are not recommending for any surgical intervention and palliative care at this point. Discussed with the family, Surgeon, Dr. Harvey, and primary care physician who agree with this course of action. Continue supportive care with laxatives and enema. [facility] has been consulted and patient can discharge home with hospice as of today. 2. Chronic constipation, now likely secondary to obstructive mass. Continue conservative and palliation with laxatives and enema. 3. Metastatic small cell prostate cancer with multiple new metastases, including brain metastases and progression and enlargement of the intra- abdominal metastasis causing colonic obstruction but also obstructive uropathy. Hospice/Palliation is recommended as the patient is not stable for any surgical intervention or further intervention. 4. Dehydration and hypokalemia, resolved with IV fluids. 5. Chronic pain secondary to metastatic prostate cancer. Continue narcotics. 6. Protein calorie deficiency, now moderate to severe with decreased p.o. intake. Hospice, pleasure feedings. Prophylaxis. SCDs to lower extremities for DVT prophylaxis and Protonix for gastrointestinal prophylaxis. DISPOSITION: Prognosis is extremely poor. D/c home with [facility] Need to re address code status with family while on Hospice, I have conveyed to her that a DNR status/comfort measures, would be more appropriate for the patient. Subjective 24 Hr Interval Summary Free Text/Dictation Patient remains comfortable, so far and awaiting to go home once signed up with Hospice today Exam/Review of Systems Vital Signs Vitals Vital Signs Date Time Temp Pulse Resp B/P Pulse Ox O2 Delivery O2 Flow Rate FiO2 09/17/16 07:51 97.9 82 18 125/59 99 09/15/16 00:05 Room Air Intake and Output 09/16/16 09/16/16 09/17/16 15:00 23:00 07:00 Intake Total 520 ml 1620 ml 970 ml Balance 520 ml 1620 ml 970 ml Exam Constitutional: alert, frail, oriented Respiratory: clear to auscultation, normal air movement Cardiovascular: nl pulses, regular rate and rhythm Gastrointestinal: soft, tender (some lower abdo pain and discomfort ) Musculoskeletal: nl extremities to inspection Extremities: normal pulses, other (no edema, clubbing ot cyanosis ) Neurological: MOLDER FEEDER II-XII intact, lethargic, nl mental status, nl speech, other (genralized weakness ) Results Result Diagram: 09/16/16 0500 09/16/16 0500 Medications Medications Current Medications Ondansetron HCl (Zofran Inj) 4 mg Q6H PRN IV NAUSEA AND/OR VOMITING; Start at 04:00 Acetaminophen (Tylenol Tab) 650 mg Q6H PRN PO PAIN LEVEL 1-3 OR FEVER; Start at 04:00 Docusate Sodium (Colace) 100 mg Q12H PRN PO CONSTIPATION Last administered on 05:48; Admin Dose 100 MG; Start 09/15/16 at 04:00 Magnesium Hydroxide (Milk Of Mag) 30 ml DAILY PRN PO CONSTIPATION; Start at 04:00 Bisacodyl (Dulcolax Supp) 10 mg DAILY PRN [place] CONSTIPATION; Start 09/15/16 at 04 :00 Pantoprazole (Protonix Iv) 40 mg DAILY@06 IV Last administered on 09/17/16 05: 35; Admin Dose 40 MG; Start 09/15/16 at 06:00 Lactobacillus Acidoph/Bulgaricus (Floranex) 1 tab BID PO Last administered on 10:04; Admin Dose 1 TAB; Start 09/15/16 at 09:00 Levetiracetam (Keppra) 250 mg BID PO Last administered on 09/17/16 10:04; Admin Dose 250 MG; Start 09/15/16 at 09:00 Polyethylene Glycol (Miralax) 17 gm BID PO Last administered on 09/17/16 10:04 ; Admin Dose 17 GM; Start 09/15/16 at 09:00 Tramadol HCl (Ultram) 50 mg QID PRN PO PAIN Last administered on 09/17/16 05: 39; Admin Dose 50 MG; Start 09/15/16 at 04:00 Morphine Sulfate (morphine) 20 mg Q8H PRN PO PAIN; Start 09/15/16 at 04:00 Morphine Sulfate 10 mg 10 mg TID PRN PO PAIN Last administered on 09/16/16 20: 51; Admin Dose 10 MG; Start 09/15/16 at 04:19 Potassium Chloride/Dextrose/ Sodium Chloride (KCl/D5-NS) 1,020 ml @ 100 mls/hr [id number] IV Last administered on 09/17/16 10:04; Admin Dose 100 MLS/HR; Start 09/15/16 at 05:30 Dexamethasone (Decadron) 4 mg BID PO Last administered on 09/17/16 10:04; Admin Dose 4 MG; Start 09/15/16 at 21:00 Mineral Oil (Fleet Mineral Oil Enema) 133 ml Q48H PRN [place] CONSTIPATION Last administered on 09/15/16 15:49; Admin Dose 133 ML; Start 09/15/16 at 12:00 KEKE ARDON Sep 17, 2016 15:43
[2016-09-18] MEDS ORDERED: DEXAMETHASONE 4 MG TAB PO SCH (09:00)
--- NOTE | 2016-09-19 05:54 | DS ---
DATE OF ADMISSION: 09/14/2016 DATE OF DISCHARGE: 09/17/2016 PRIMARY CARE PHYSICIAN: Dr. Leonidas Kraus PRIMARY ONCOLOGIST: Dr. Walker Fagan PRIMARY RADIATION ONCOLOGIST: Dr. Mason CONSULTANTS DURING THIS ADMISSION: Dr. Jose Luis Harvey from general surgery and [facility] for hospice. CHIEF COMPLAINT ON ADMISSION: Generalized weakness, inability to have a bowel movement. BRIEF HISTORY OF PRESENT ILLNESS: This is a 75-year-old male with known history of metastatic small cell prostate cancer, unfortunately with progression and wide metastasis including in his abdomen a nd also brain mets. This is after he got chemotherapy recently. He has been trying to get to radia tion therapy but is unfortunately too weak with decreasing appetite, anorexia, increasing abdominal distention, and decreased bowel movements to a point where he did not have any bowel movement for 3 days. Therefore, the family brought him in. He was found to have an extrinsic obstruction at the l evel of the sigmoid colon due to metastatic tumor. A general surgery consult was placed. The patie nt was admitted to a telemetry bed as he was found to be hypokalemic requiring IV potassium. HOSPITAL COURSE: The patient was admitted to telemetry at first. His electrolytes were corrected w ith IV fluids and IV potassium. In the meantime, a discussion did take place between the patient's family and their primary care physician, Dr. Kraus, and also with Dr. Jose Luis Harvey from [facility] and then subsequently with myself regarding the fact that, at this point, it would be recommen ded for the patient to be on palliative and comfort measures with no more surgeries, no more chemoth erapy, and no radiation. The family, after discussion, did agree to that plan of care. Therefore, hospice evaluation was placed with [facility]. They discharged the patient, and the patient was discharg ed on 09/17/2016 back home on hospice. During his stay, it was also reported that the blood culture s were growing coag negative staph, and then the urine culture also came back with E. coli, but agai n, the patient is on hospice with currently plan of care will be just comfort. Of note, the repeat blood cultures are negative which is hinting that possibly this coag negative staph may be a contami nant after all. Urine culture was less than 10 CFU of E. coli. Either way, the patient is on hospi ce, and at this point, no intervention, just comfort measures. DISPOSITION: Discharged home on hospice with [facility]. DISCHARGE CONDITION: The patient is basically bedridden and on comfort measures. DISCHARGE DIET: Pleasure feeding as tolerated. FOLLOWUP: The patient will be followed by hospice [facility] and also his primary care physician as an o utpatient. DISCHARGE DIAGNOSES: 1. Extrinsic colonic obstruction secondary to metastatic prostate cancer. 2. Chronic constipation. 3. Metastatic small cell prostate cancer with multiple mets to brain and intraabdominal. 4. Dehydration and hypokalemia. 5. Chronic pain. 6. Protein calorie deficiency, severe. DISCHARGE MEDICATIONS: These will be reviewed by hospice physician, but for now 1. Alprazolam 0.5 mg p.o. q. 8 hours p.r.n. anxiety. 2. Floranex 1 tab p.o. b.i.d. 3. Keppra 250 mg p.o. b.i.d. 4. Morphine sulfate 10-20 mg p.o. t.i.d. p.r.n. pain. 5. Protonix 40 mg p.o. daily. 6. MiraLax 17 grams p.o. b.i.d. 7. Tramadol 50 mg p.o. q.i.d. p.r.n. pain. 8. Bowel regimen. Dictated By: KEKE DAHL/DOUGLAS Conf#: [id number] DID#: [id number]
== END 2016-09-17 20:09 | disposition hospice, home (50) | DRG 388 ==
LOC: E/R 16:28 → TEL 22:45 → PP2 09-16 22:37
PROVIDERS: ADMIT Internal Medicine; ATTEND Internal Medicine
DX: K56.69 Other intestinal obstruction (principal); E43 Unspecified severe protein-calorie malnutrition; C79.31 Secondary malignant neoplasm of brain; C79.89 Secondary malignant neoplasm of other specified sites; C79.82 Secondary malignant neoplasm of genital organs; E87.2 Acidosis; E86.0 Dehydration; R64 Cachexia; N13.9 Obstructive and reflux uropathy, unspecified; E87.6 Hypokalemia; K59.09 Other constipation; G89.29 Other chronic pain; Z66 Do not resuscitate; Z51.5 Encounter for palliative care; Z92.21 Personal history of antineoplastic chemotherapy; Z68.21 Body mass index [BMI] 21.0-21.9, adult
CPT/HCPCS: 36415; 71010; 74176; 80048; 80053; 81001; 81003; 82550; 82553; 83605; 83690; 83735; 84100; 84484; 85025; 85610; 85730; 87040; 87086; 96365; 96366; 96375; 96376; C9113; J1650; J2405; J3475; J3480; J7030; J7042; J7050